=== PATIENT | female | born 1995 | race Caucasian/White ===

== ENCOUNTER 2017-02-13 22:13 | Emergency (ER) | payer OTHER ==
[2017-02-13 22:35] VITALS: RESP 16
--- NOTE | 2017-02-13 23:19 | EDPHY ---
H & P Stated Complaint: lower abd pain xfew weeks, bright red diarrhea Time Seen by Provider: 02/13/17 23:06 HPI/ROS: Chief Complaint: Diarrhea HPI: 21-year-old woman presenting with 2 weeks of intermittent diarrhea. Patient states she is having an episode of maybe twice a week. Is associated with some abdominal cramping. This evening she had an episode of diarrhea with blood in it. Shortly thereafter she had another bowel movement where she passed ronald blood. Has had some cramping today. Currently is not have any pain. Some nausea, no vomiting. Denies any rectal pain. No history of hemorrhoids. She does have a history of irritable bowel syndrome which she has been taking medications for the past but is not currently on any medications for this. Denies any fevers or chills. Has had some weight loss and has a history of anorexia but states she has been eating some. ROS: 10 point Review of Systems is negative except as noted in the HPI. PMH: IBS, exercise-induced asthma, pericardial effusion, depression, borderline personality, anorexia nervosa Social History: No smoking, no alcohol, no recreational drug use Family History: non-contributory Physical Exam: Gen: Awake, Alert, No Distress HEENT: Nose: no rhinorrhea Eyes: PERRLA, EOMI Mouth: Moist mucosa Neck: Supple, no JVD Chest: nontender, lungs clear to auscultation Heart: S1, S2 normal, no murmur Abd: Soft, non-tender, no guarding Back: no CVA tenderness, no midline tenderness Ext: no edema, non-tender Skin: no rash Neuro: CN II-XII intact, Sensation grossly intact, Strength 5/5 in bilateral upper and lower extremities - Personal History LMP (Females 10-55): Over 28 Days Ago Current Tetanus/Diphtheria Vaccine: Yes Current Tetanus Diphtheria and Acellular Pertussis (TDAP): Yes Tetanus Vaccine Date: 2010 - Medical/Surgical History Hx Asthma: Yes Hx Chronic Respiratory Disease: No Hx Diabetes: No Hx Cardiac Disease: No Hx Renal Disease: No Hx Cirrhosis: No Hx Alcoholism: No Hx HIV/AIDS: No Hx Splenectomy or Spleen Trauma: No Other PMH: [place]; IBS; schizoeffective, depression, anxiety, in transition from female to male with hormone therapy 06/28/16 - Social History Smoking Status: Former smoker Constitutional: Initial Vital Signs Temperature (C) 36.6 C 02/13/17 22:31 Heart Rate 93 02/13/17 22:31 Respiratory Rate 16 02/13/17 22:31 Blood Pressure 118/66 02/13/17 22:31 O2 Sat (%) 98 02/13/17 22:31 O2 Delivery Mode Room Air Allergies/Adverse Reactions: No Known Allergies Allergy (Verified 06/28/16 03:09) Home Medications: Medication Instructions Recorded Adderall 06/28/16 Klonopin 06/28/16 Lamictal 06/28/16 TESTOSTERONE 06/28/16 Medical Decision Making ED Course/Re-evaluation: Patient blood work is normal. Normal H&H. Normal electrolytes. Has not had any further diarrhea here. Symptoms are consistent with irritable bowel. She has only had 1 episode of blood this evening. No active bleeding at this time. She has been cautioned to return should her symptoms worsen. Her vital signs are normal. She will be discharged with referral for outpatient follow-up with gastroenterology and primary care physician. Return for worsening. - Data Points Laboratory Results: Laboratory Results 02/13/17 23:06 02/13/17 23:06 02/13/17 02/13/17 02/13/17 23:06 23:06 23:06 WBC 6.65 10^3/uL 10^3/uL (3.80-9.50) RBC 4.59 10^6/uL 10^6/uL (4.18-5.33) Hgb 14.8 g/dL g/dL (12.6-16.3) Hct 43.4 % % (38.0-47.0) MCV 94.6 fL fL (81.5-99.8) MCH 32.2 pg pg (27.9-34.1) MCHC 34.1 g/dL g/dL (32.4-36.7) RDW 12.8 % % (11.5-15.2) Plt Count 144 10^3/uL L 10^3/uL (150-400) MPV 10.7 fL fL (8.7-11.7) Neut % (Auto) 63.9 % % (39.3-74.2) Lymph % (Auto) 23.5 % % (15.0-45.0) [place] % (Auto) 11.4 % % (4.5-13.0) Eos % (Auto) 0.3 % L % (0.6-7.6) Baso % (Auto) 0.6 % % (0.3-1.7) Nucleat RBC Rel Count 0.0 % % (0.0-0.2) Absolute Neuts (auto) 4.25 10^3/uL 10^3/uL (1.70-6.50) Absolute Lymphs (auto) 1.56 10^3/uL 10^3/uL (1.00-3.00) Absolute Monos (auto) 0.76 10^3/uL 10^3/uL (0.30-0.80) Absolute Eos (auto) 0.02 10^3/uL L 10^3/uL (0.03-0.40) Absolute Basos (auto) 0.04 10^3/uL 10^3/uL (0.02-0.10) Absolute Nucleated RBC 0.00 10^3/uL 10^3/uL (0-0.01) Immature Gran % 0.3 % % (0.0-1.1) Immature Gran # 0.02 10^3/uL 10^3/uL (0.00-0.10) Sodium 138 mEq/L mEq/L (134-144) Potassium 3.6 mEq/L mEq/L (3.5-5.2) Chloride 97 mEq/L mEq/L (97-110) Carbon Dioxide 28 mEq/l mEq/l (22-31) Anion Gap 13 mEq/L mEq/L (8-16) BUN 6 mg/dL L mg/dL (7-23) Creatinine 0.8 mg/dL mg/dL (0.6-1.0) Estimated GFR > 60 Glucose 71 mg/dL mg/dL (70-100) Calcium 9.8 mg/dL mg/dL (8.5-10.4) Beta HCG, Qual NEGATIVE Departure - Departure Disposition: Home, Routine, Self-Care Clinical Impression: Lower GI bleeding Condition: Good Instructions: Rectal Bleeding (ED) Additional Instructions: Follow up with weight engineer in 3-4 days for re-evaluation. Follow up with primary care physician in 3-4 days for re-evaluation. Return to the emergency depart for increasing episodes of blood per rectum, lightheadedness or fainting, worsening abdominal pain, fevers, chills, or any other concerns. Referrals: Estee Gomez PA [Primary Care Provider] - As per Instructions Man Graham MD [Medical Doctor] - As per Instructions
[2017-02-13 23:22] LABS: % IMMATURE GRANULYOCYTES 0.3 % (0.0-1.1); ABSOLUTE IMMATURE GRANULOCYTES 0.02 10^3/uL (0.00-0.10); ADD DIFF? NO; ADD MORPH? NO; ADD SCAN? NO; ATYPICAL LYMPHOCYTE FLAG 0 (0-99); FRAGMENT RBC FLAG 0 (0-99); HEMATOCRIT 43.4 % (38.0-47.0); HEMOGLOBIN 14.8 g/dL (12.6-16.3); LEFT SHIFT FLG 0 (0-99); LIPEMIA HEMOLYSIS FLAG 90 (0-99); MEAN CELL HEMOGLOBIN 32.2 pg (27.9-34.1); MEAN CELL HEMOGLOBIN CONCENTR. 34.1 g/dL (32.4-36.7); MEAN CELL VOLUME 94.6 fL (81.5-99.8); MEAN PLATELET VOLUME 10.7 fL (8.7-11.7); PLATELET CLUMPS FLAG 0 (0-99); PLATELET COUNT 144 10^3/uL (150-400); RED BLOOD CELL COUNT 4.59 10^6/uL (4.18-5.33); RED CELL DISTRIBUTION WIDTH 12.8 % (11.5-15.2)
[2017-02-13 23:29] LABS: ANION GAP 13 mEq/L (8-16); CALCIUM 9.8 mg/dL (8.5-10.4); CARBON DIOXIDE 28 mEq/l (22-31); CHLORIDE 97 mEq/L (97-110); CREATININE 0.8 mg/dL (0.6-1.0); GLOMERULAR FILTRATION RATE > 60; GLUCOSE 71 mg/dL (70-100); POTASSIUM 3.6 mEq/L (3.5-5.2); SODIUM 138 mEq/L (134-144)
[2017-02-14 00:04] VITALS: BP 116/67; PULSE 76; TEMP 98.1; O2SAT 97
== END 2017-02-14 00:13 | disposition home or self-care (01) ==
DX: K92.2 Gastrointestinal hemorrhage, unspecified (principal); Z87.891 Personal history of nicotine dependence

== ENCOUNTER 2017-03-14 08:52 | Inpatient (IN) | payer OTHER ==
[2017-03-14] MEDS ORDERED: fentaNYL 100 MCG/2 ML INJ IVP ONE (09:24)
[2017-03-14] MEDS ORDERED: ONDANSETRON 4 MG/2 ML VIAL IVP ONE (09:24)
[2017-03-14] MEDS ORDERED: NS 1,000 ML IV ONE ×3 (09:24→14:57)
--- NOTE | 2017-03-14 09:24 | EDPHY ---
H & P Time Seen by Provider: 03/14/17 09:12 HPI/ROS: CHIEF COMPLAINT: Abdominal pain, vomiting HISTORY OF PRESENT ILLNESS: 21-year-old transgender male presents to the emergency department with abdominal pain and vomiting. Symptoms began 24 hours ago. She initially started with vomiting and has vomited "count less" times. No diarrhea. No bowel movement for 2 days. No fevers or chills. No back pain. No urinary symptoms. The patient does not have menstrual cycles because she is taking testosterone. She denies chest pain or difficulty breathing. Denies reported trauma. REVIEW OF SYSTEMS: Constitutional: No fever, no chills. Eyes: No double or blurry vision. ENT: No sore throat. Respiratory: No cough, no shortness of breath. Cardiac: No chest pain. Gastrointestinal: Abdominal pain as above. Vomiting. No diarrhea. Genitourinary: No dysuria. Musculoskeletal: No neck or back pain. Skin: No rashes. Neurological: No headache. Past Medical/Surgical History: Transgender Social History: Single Smoking Status: Former smoker Physical Exam: General Appearance: Alert, no distress. Afebrile. No apparent distress. Eyes: Pupils equal and round. Extraocular motions are all intact. ENT: Mouth: Mucous membranes dry. Respiratory: No wheezing, rhonchi, or rales, lungs are clear to auscultation. Cardiovascular: Regular rate and rhythm. Gastrointestinal: Abdomen is soft. Tenderness with palpation in the right lower quadrant. No rebound, guarding or masses noted. No CVA tenderness bilaterally. Neurological: Alert and oriented x 3, cranial nerves II through XII grossly intact Skin: Warm and dry, no rashes. Musculoskeletal: Nontender to palpate along the cervical, thoracic or lumbar spine. Neck is supple. Extremities: Full range of motion and no peripheral edema. Psychiatric: Patient is oriented X 3, there is no agitation. Constitutional: Initial Vital Signs Temperature (C) 36.9 C 03/14/17 08:58 Heart Rate 116 H 03/14/17 08:58 Respiratory Rate 16 03/14/17 08:58 Blood Pressure 137/108 H 03/14/17 08:58 O2 Sat (%) 98 03/14/17 08:58 O2 Delivery Mode Room Air Allergies/Adverse Reactions: No Known Allergies Allergy (Verified 03/14/17 09:01) Home Medications: Medication Instructions Recorded Amphet Asp and D/Amphet [Adderall 10 mg PO DAILY PRN 06/28/16 10 MG (*)] Testosterone [Androderm] 1 each TD DAILY 06/28/16 clonazePAM [klonoPIN (*)] 1 mg PO DAILY PRN 06/28/16 lamoTRIgine [LamICTAL 100 MG (*)] 200 mg PO HS 06/28/16 Gabapentin [Neurontin 300 MG (*)] 900 mg PO HS 03/14/17 Ondansetron Odt [Zofran Odt 4 mg 4 mg PO DAILY PRN 03/14/17 (*)] Medical Decision Making - Diagnostics Imaging Results: Imaging Impressions Abdomen Ultrasound 03/14/17 10:14 Impression: 1. Nondiagnostic assessment of the appendix. 2. Small amount of free fluid, of indeterminate etiology. 3. Query mild right lower quadrant mesenteric adenitis. If there is further clinical concern regarding the patient's symptoms, contrast- enhanced CT imaging is suggested. Findings were discussed with GILL MEADE PA-C at 11:32 AM, on 03/14/2017. Abdomen CT 03/14/17 12:02 Impression: Acute pancreatitis. Findings and recommendations discussed with Gill Meade PA-C, at 1334 hour , 03/14/2017. Final report concurs with initial preliminary interpretation. Imaging: Discussed imaging studies w/ director call center sales Radiologist ED Course/Re-evaluation: 21-year-old transgender male presents to the emergency department with multiple episodes of nausea vomiting abdominal pain. Laboratory studies reveal elevated white blood cell count of almost 15,000. Initial chemistries reveal creatinine of 1.4 with a CO2 of 18. He appears acutely dehydrated. He received 2 L of IV normal saline. Limited abdominal ultrasound did not reveal the appendix. Did have some nonspecific free fluid near the gallbladder. The patient continued to have ongoing pain. I was concerned about possible acute appendicitis. The case was discussed with Dr. Jorge Donohue, secondary supervising physician, who did not directly evaluate the patient but agrees with treatment and plan. He agrees with CT imaging to look for acute appendicitis. The patient does have an elevated creatinine 1.4, however he did received 2 L of IV normal saline. I did discuss this with the patient who verbalized understanding and agreed. Urine HCG in the emergency department was negative. CT imaging of the abdomen and pelvis was difficult to see the appendix although no signs of acute appendicitis. CT was positive for acute pancreatitis without necrosis. Ascites also noted. Fatty liver. LFTs are elevated including conjugated bili, AST ALT and alkaline phosphatase. Lipase is over 6000. Patient will be admitted with acute pancreatitis. He was treated with 3 L of IV normal saline. Also received IV fentanyl initially and then IV morphine for pain and Zofran for nausea. Differential Diagnosis: Including but not limited to dehydration, acute appendicitis, pancreatitis, hepatitis, urinary tract infection, pyelonephritis - Data Points Laboratory Results: Laboratory Results 03/14/17 09:25 03/14/17 09:25 03/14/17 03/14/17 03/14/17 09:25 09:25 09:25 WBC RBC Hgb Hct MCV MCH MCHC RDW Plt Count MPV Neut % (Auto) Lymph % (Auto) [place] % (Auto) Eos % (Auto) Baso % (Auto) Nucleat RBC Rel Count Absolute Neuts (auto) Absolute Lymphs (auto) Absolute Monos (auto) Absolute Eos (auto) Absolute Basos (auto) Absolute Nucleated RBC Immature Gran % Immature Gran # Sodium 135 mEq/L mEq/L (134-144) Potassium 4.9 mEq/L mEq/L (3.5-5.2) Chloride 92 mEq/L L mEq/L (97-110) Carbon Dioxide 18 mEq/l L mEq/l (22-31) Anion Gap 25 mEq/L H mEq/L (8-16) BUN 18 mg/dL mg/dL (7-23) Creatinine 1.4 mg/dL H mg/dL (0.7-1.3) Estimated GFR > 60 Glucose 152 mg/dL H mg/dL (70-100) Calcium 9.6 mg/dL mg/dL (8.5-10.4) Phosphorus Pending Total Bilirubin 1.1 mg/dL mg/dL (0.1-1.4) Conjugated Bilirubin 0.6 mg/dL H mg/dL (0.0-0.5) Unconjugated Bilirubin 0.5 mg/dL mg/dL (0.0-1.1) AST 244 IU/L H IU/L (17-59) ALT 95 IU/L H IU/L (21-72) Alkaline Phosphatase 150 IU/L H IU/L (38-126) Total Protein 7.8 g/dL g/dL (6.3-8.2) Albumin 5.1 g/dL H g/dL (3.5-5.0) Lipase 6049 IU/L H IU/L (23-300) 03/14/17 09:25 WBC 14.28 10^3/uL H 10^3/uL (3.80-9.50) RBC 4.90 10^6/uL 10^6/uL (4.40-6.38) Hgb 15.6 g/dL g/dL (13.7-17.5) Hct 46.3 % % (40.0-51.0) MCV 94.5 fL fL (81.5-99.8) MCH 31.8 pg pg (27.9-34.1) MCHC 33.7 g/dL g/dL (32.4-36.7) RDW 12.8 % % (11.5-15.2) Plt Count 149 10^3/uL L 10^3/uL (150-400) MPV 10.2 fL fL (8.7-11.7) Neut % (Auto) 85.6 % H % (39.3-74.2) Lymph % (Auto) 3.6 % L % (15.0-45.0) [place] % (Auto) 10.1 % % (4.5-13.0) Eos % (Auto) 0.0 % L % (0.6-7.6) Baso % (Auto) 0.3 % % (0.3-1.7) Nucleat RBC Rel Count 0.0 % % (0.0-0.2) Absolute Neuts (auto) 12.22 10^3/uL H 10^3/uL (1.70-6.50) Absolute Lymphs (auto) 0.52 10^3/uL L 10^3/uL (1.00-3.00) Absolute Monos (auto) 1.44 10^3/uL H 10^3/uL (0.30-0.80) Absolute Eos (auto) 0.00 10^3/uL L 10^3/uL (0.03-0.40) Absolute Basos (auto) 0.04 10^3/uL 10^3/uL (0.02-0.10) Absolute Nucleated RBC 0.00 10^3/uL 10^3/uL (0-0.01) Immature Gran % 0.4 % % (0.0-1.1) Immature Gran # 0.06 10^3/uL 10^3/uL (0.00-0.10) Sodium Potassium Chloride Carbon Dioxide Anion Gap BUN Creatinine Estimated GFR Glucose Calcium Phosphorus Total Bilirubin Conjugated Bilirubin Unconjugated Bilirubin AST ALT Alkaline Phosphatase Total Protein Albumin Lipase Medications Given: Morphine Sulfate (Morphine) 1 - 2 mg IVP Q1HR PRN PRN Reason: Pain, Severe Unable to Take PO Stop: 03/24/17 14:56 Last Admin: 03/14/17 15:12 Dose: 2 mg Ondansetron HCl (Zofran) 4 mg IVP Q4HRS PRN PRN Reason: Nausea/Vomiting, Can't Take PO Stop: 09/10/17 14:56 Last Admin: 03/14/17 15:12 Dose: 4 mg Discontinued Medications Fentanyl (Sublimaze) 50 mcg IVP EDNOW ONE Stop: 03/14/17 09:25 Last Admin: 03/14/17 09:46 Dose: 50 mcg Sodium Chloride (Ns) 1,000 mls @ 0 mls/hr IV EDNOW ONE; Wide Open PRN Reason: Protocol Stop: 03/14/17 09:25 Last Admin: 03/14/17 09:47 Dose: 1,000 mls Sodium Chloride (Ns) 1,000 mls @ 0 mls/hr IV EDNOW ONE; Wide Open PRN Reason: Protocol Stop: 03/14/17 10:02 Last Admin: 03/14/17 10:25 Dose: 1,000 mls Sodium Chloride (Ns) 1,000 mls @ 3,000 mls/hr IV ONCE ONE Stop: 03/14/17 15:16 Last Admin: 03/14/17 15:12 Dose: 1,000 mls Ondansetron HCl (Zofran) 4 mg IVP EDNOW ONE Stop: 03/14/17 09:25 Last Admin: 03/14/17 09:46 Dose: 4 mg Departure - Departure Disposition: [facility] Clinical Impression: Dehydration Pancreatitis Qualifiers: Chronicity: acute Pancreatitis type: alcohol induced Acute pancreatitis complication: unspecified Qualified Code(s): K85.20 - Alcohol induced acute pancreatitis without necrosis or infection Vomiting Qualifiers: Vomiting type: unspecified Vomiting Intractability: non-intractable Nausea presence: with nausea Qualified Code(s): R11.2 - Nausea with vomiting, unspecified Condition: Good
[2017-03-14 09:39] LABS: % IMMATURE GRANULYOCYTES 0.4 % (0.0-1.1); ABSOLUTE IMMATURE GRANULOCYTES 0.06 10^3/uL (0.00-0.10); ADD DIFF? NO; ADD MORPH? NO; ADD SCAN? NO; ATYPICAL LYMPHOCYTE FLAG 0 (0-99); FRAGMENT RBC FLAG 0 (0-99); HEMATOCRIT 46.3 % (40.0-51.0); HEMOGLOBIN 15.6 g/dL (13.7-17.5); LEFT SHIFT FLG 10 (0-99); LIPEMIA HEMOLYSIS FLAG 80 (0-99); MEAN CELL HEMOGLOBIN 31.8 pg (27.9-34.1); MEAN CELL HEMOGLOBIN CONCENTR. 33.7 g/dL (32.4-36.7); MEAN CELL VOLUME 94.5 fL (81.5-99.8); MEAN PLATELET VOLUME 10.2 fL (8.7-11.7); PLATELET CLUMPS FLAG 0 (0-99); PLATELET COUNT 149 10^3/uL (150-400); RED CELL DISTRIBUTION WIDTH 12.8 % (11.5-15.2)
[2017-03-14 09:48] LABS: ANION GAP 25 mEq/L (8-16); CALCIUM 9.6 mg/dL (8.5-10.4); CARBON DIOXIDE 18 mEq/l (22-31); CHLORIDE 92 mEq/L (97-110); CREATININE 1.4 mg/dL (0.7-1.3); GLOMERULAR FILTRATION RATE > 60; GLUCOSE 152 mg/dL (70-100); POTASSIUM 4.9 mEq/L (3.5-5.2); SODIUM 135 mEq/L (134-144)
[2017-03-14 12:12] LABS: ALBUMIN 5.1 g/dL (3.5-5.0); BILIRUBIN,TOTAL 1.1 mg/dL (0.1-1.4); BILIRUBIN-CONJUGATED 0.6 mg/dL (0.0-0.5); BILIRUBIN-UNCONJUGATED 0.5 mg/dL (0.0-1.1); TOTAL PROTEIN 7.8 g/dL (6.3-8.2)
[2017-03-14] MEDS ORDERED: IOPAMIDOL (ISOVUE-300) 100 ML BTL ONE (12:16)
[2017-03-14] MEDS ORDERED: PROMETHAZINE HCL 25 MG/ML INJ IVP PRN (14:57)
[2017-03-14] MEDS ORDERED: ACETAMINOPHEN 325 MG TAB PO PRN (14:57)
[2017-03-14] MEDS ORDERED: ONDANSETRON 4 MG/2 ML VIAL IVP PRN (14:57)
[2017-03-14] MEDS ORDERED: THIAMINE HCL 500 MG in NS 100 ML IV ONE (15:00)
[2017-03-14] MEDS ORDERED: chlordiazePOXIDE 25 MG CAP PO ONE (15:00)
[2017-03-14] MEDS ORDERED: LORazepam 2 MG/ML INJ IVP PRN (15:00)
--- NOTE | 2017-03-14 16:18 | GHP ---
[f rep st] HISTORY AND PHYSICAL DATE OF ADMISSION: 03/14/2017 CHIEF COMPLAINT: Abdominal pain, nausea, vomiting. HISTORY OF PRESENT ILLNESS: A 21-year-old transgender, female to male, who presents with abdominal pain, nausea and vomiting, for the 24 hours preceding her presentation to the emergency department. The patient reports very little p.o. intake the day prior to presentation with severe lower quadrant abdominal discomfort and vomiting that she says occurred upwards of 70 time over the 24 hours prior to her presentation. The patient describes vomiting bilious material only prior to arriving to the emergency department. Denies any hematemesis or coffee-grounds emesis. Denies any diarrhea or hematochezia. Denies any headache, vision changes, shortness of breath, chest pain. Denies myalgias, arthralgias, or rashes. The patient denies any previous episodes of pancreatitis or alcohol withdrawal. The patient works at a [employer] where she reports drinking high quantities of alcohol. She experiences some withdrawal symptoms of tremor and hallucinations on the days she is not consuming that level of alcohol. PAST MEDICAL HISTORY: 1. IBS. 2. Borderline personality disorder. 3. Schizoaffective disorder. 4. Depression. 5. Anorexia. 6. Alcohol abuse. 7. 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 SOCIAL HISTORY: High quantity alcohol consumption, greater than 8 beverages a day when working. FAMILY HISTORY: Unknown. The patient is adopted, however, was told at some point in her paperwork that alcoholism was in her family. REVIEW OF SYSTEMS: A 10-point review of systems is negative with the exception of that reported in the HPI. PHYSICAL EXAMINATION: VITAL SIGNS: Blood pressure is 137/108, heart rate 116, respiratory rate 16, 98% on room air, 36.9. GENERAL: This is a young female, lying flat in bed. HEENT: The patient appeared with full cheeks, almost consistent with steroid exposure. Pupils were equal and round. CARDIAC: Patient is regular rate and rhythm. No murmurs, gallops, or rubs. PULMONARY: Good respiratory effort. Clear to auscultation bilaterally. GASTROINTESTINAL: Diminished bowel sounds. The patient is very tender to palpation in all 4 quadrants, right upper and bilateral lower greater than upper left. There is voluntary guarding. No rebound. MUSCULOSKELETAL: Negative for any lower extremity edema. SKIN: Negative for any rashes. NEUROLOGIC: She is alert and oriented x3. PSYCHIATRIC: She was cooperative on interview and examination. DATA: White count is 14.2, hematocrit 46.3, platelet count of 149. Sodium 135 , creatinine 1.4. Anion gap of 25. Bicarb of 18. Blood glucose 152. AST of 244, ALT 95. Alkaline phosphatase 150. Total bilirubin 1.1. Lipase of 6049. CT of the abdomen, which I personally reviewed and interpreted, shows pancreatitis. No abnormalities of the gallbladder. Radiology comments on fatty infiltration of the liver. ASSESSMENT AND PLAN: This is a 21-year-old female, with history of alcohol abuse, presenting with abdominal pain. 1. Acute pancreatitis, presumed secondary to alcohol. The patient is presenting with high-volume alcohol consumption and acute onset abdominal pain. Imaging is consistent with pancreatitis. We will admit for intravenous fluids , intravenous pain medications, intravenous antiemetics. We will keep the patient nothing by mouth until her abdominal pain improves. We discussed at length the importance of alcohol cessation going forward and the risk of recurrent pancreatitis with reintroduction of alcohol to her pancreas. Suspicion for confounding factors such as gallstones or gallbladder disease is low as imaging on presentation is normal. 2. Systemic inflammatory response syndrome. Patient is presenting with leukocytosis and tachycardia, presumed secondary to pancreatitis. We will fluid resuscitate, treat her pain, and follow her vital sign and laboratory abnormalities. 3. Anion gap metabolic acidosis, presumed secondary to starvation ketosis with alcohol consumption and dehydration. Sent urinalysis to look for ketones. Will aggressively fluid resuscitate and follow her BMP in the morning. 4. Acute kidney injury secondary to hypovolemia. Per the patient's report, she has had very little effective oral intake in greater than 24 hours. Again, we will fluid resuscitate and recheck her labs in the morning. 5. Schizoaffective mood disorder. Patient takes evening Lamictal which will continue at this time. Brief literature review makes this medication less likely a contributor to her acute pancreatitis. 6. Active anorexia nervosa. The patient does report receiving active treatment for her eating disorder. She is a food restrictor. Most currently denies the use of recent diuretics or stool softeners. We are making the patient nothing by mouth in the setting of acute pancreatitis. Hope we can resume normal food intake post acute treatment of her intra-abdominal abnormality. 7. Alcohol abuse. We will treat the patient with intravenous vitamins. The patient is showing early signs of alcohol withdrawal. 8. Acute alcohol withdrawal. The patient presented tachycardic, tremulous with tongue fasciculations. She is reporting 8 or more alcoholic beverages a day with days in between of no consumption, however, I am questioning the truth in that report. We will initiate the [facility] Withdrawal Assessment protocol and scheduled Librium. Follow patient's symptoms and treat with intravenous Ativan as needed. 9. 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 The patient is taking testosterone supplementation transdermally which we will continue. I have requested that we send a test even in the setting of her transgender state as we will be using high-dose narcotics and benzodiazepines for her acute illness. 10. Prophylaxis with Lovenox. 11. Diet: Nothing by mouth. 12. Disposition: I expect greater than 2 midnights as the patient is presenting with acute pancreatitis, high risk for developing serious alcohol withdrawal. She will require close monitoring, intravenous fluid resuscitation , and intravenous pain medications. I have discussed the case with the emergency room physician. Patient will be triaged to the medical-surgical floor for care. /[id number]/MODL MTDD
[2017-03-14] MEDS: NS 1,000 ML IV SCH ×2 (16:33→23:42)
[2017-03-14] MEDS: lamoTRIgine 100 MG TAB PO SCH (21:49)
[2017-03-14] MEDS: chlordiazePOXIDE 25 MG CAP PO SCH (21:49)
[2017-03-15 05:48] LABS: % IMMATURE GRANULYOCYTES 0.4 % (0.0-1.1); ABSOLUTE IMMATURE GRANULOCYTES 0.03 10^3/uL (0.00-0.10); ADD DIFF? NO; ADD MORPH? NO; ADD SCAN? NO; ATYPICAL LYMPHOCYTE FLAG 0 (0-99); FRAGMENT RBC FLAG 0 (0-99); HEMATOCRIT 38.3 % (40.0-51.0); HEMOGLOBIN 12.9 g/dL (13.7-17.5); LEFT SHIFT FLG 20 (0-99); LIPEMIA HEMOLYSIS FLAG 80 (0-99); MEAN CELL HEMOGLOBIN 32.2 pg (27.9-34.1); MEAN CELL HEMOGLOBIN CONCENTR. 33.7 g/dL (32.4-36.7); MEAN CELL VOLUME 95.5 fL (81.5-99.8); MEAN PLATELET VOLUME 10.1 fL (8.7-11.7); PLATELET CLUMPS FLAG 0 (0-99); PLATELET COUNT 79 10^3/uL (150-400); RED BLOOD CELL COUNT 4.01 10^6/uL (4.40-6.38)
[2017-03-15 05:57] LABS: ANION GAP 9 mEq/L (8-16); CALCIUM 7.4 mg/dL (8.5-10.4); CARBON DIOXIDE 24 mEq/l (22-31); CHLORIDE 101 mEq/L (97-110); CREATININE 0.7 mg/dL (0.7-1.3); GLOMERULAR FILTRATION RATE > 60; GLUCOSE 63 mg/dL (70-100); MAGNESIUM 1.3 mg/dL (1.6-2.3); POTASSIUM 4.4 mEq/L (3.5-5.2); SODIUM 134 mEq/L (134-144)
[2017-03-15] MEDS ORDERED: D50W 25 GM/50 ML SYR IVP PRN (06:49)
[2017-03-15] MEDS: NS 1,000 ML IV SCH ×3 (07:41→21:00)
[2017-03-15] MEDS: chlordiazePOXIDE 25 MG CAP PO SCH ×3 (09:23→20:55)
[2017-03-15] MEDS: THIAMINE HCL 100 MG TAB PO SCH (09:23)
[2017-03-15] MEDS: ENOXAPARIN 40 MG/0.4 ML SYR SC SCH (09:24)
[2017-03-15] MEDS: TESTOSTERONE TD SCH (09:27)
--- NOTE | 2017-03-15 12:59 | HOSPPROG ---
Hospitalist Progress Note Assessment/Plan: DIAGNOSES: -acute alcohol-induced pancreatitis without necrosis -systemic immune response syndrome partly due to the above and perhaps partly due to withdrawal -mild early acute alcohol withdrawal syndrome -acute kidney injury, suspect due to hemodynamic challenge from poor intake and vomiting -metabolic acidosis -mild alcoholic hepatitis -alcohol abuse syndrome -transgender female to male, goes by name Cesar PLANS: -continue IV hydration -will allow a trial of sips of clear liquids at this time to see if she tolerates that -anticipate possible discharge to home in 1-2 days depending on her progress -did spend more time with alcohol counseling at this time. She says she has an alcohol treatment program and plans to continue that and she has very good family support locally. She views this episode is wake-up call and is very much wanting to get away from all alcohol SUBJECTIVE: Still with upper abdominal pain mild radiation to back, no nausea or vomiting No fever symptoms Is beginning is slightly thirsty and hungry No other new symptoms OBJECTIVE Vitals reviewed: Stable without fever Exam: alert oriented skin warm dry color ok resps not labored lungs clear BSs heart regular abd soft nondistended, still with tenderness and some guarding and upper abdomen , bowel sounds present No bruising or livedo reticularis limbs warm, no edema iv site ok Objective: Vital Signs Temp Pulse Resp BP Pulse Ox 36.8 C 83 18 116/76 97 03/15/17 11:51 03/15/17 11:51 03/15/17 11:51 03/15/17 11:51 03/15/17 11:51 Laboratory Results 03/15/17 05:25 03/15/17 05:25 03/14/17 03/15/17 03/16/17 06:59 06:59 06:59 Intake Total 3800 Balance 3800 ICD10 Worksheet Patient Problems: Problems Problem Status Onset Dehydration Acute Pancreatitis Acute Vomiting Acute
--- NOTE | 2017-03-15 17:04 | ASMTCMCOM ---
CM Note CM Note Notes: Chart reviewed and CM spoke w/ MONIQUE Garcia. Pt was admitted for pancreatitis. Pt is heavily engaged in ETOH. Pt's liver emymes are elevated. Pt is on IV fluids. Pt lives alone and drinks 7-8 drinks a day. CM met w/ pt for dispo planning. Pt reports that she receives services through [facility]. Pt reports that she has a psychiatrist and a therapist through that agency. CM provided big book reading for pt. Pt will most likely discharge independent. CM available for changes. Date Signed: 03/15/2017 05:03 PM Electronically Signed By:NANI Russo
[2017-03-15] MEDS: lamoTRIgine 100 MG TAB PO SCH (20:55)
[2017-03-16 03:28] VITALS: RESP 16
[2017-03-16] MEDS: NS 1,000 ML IV SCH ×3 (03:34→17:07)
[2017-03-16 05:42] LABS: % IMMATURE GRANULYOCYTES 0.6 % (0.0-1.1); ABSOLUTE IMMATURE GRANULOCYTES 0.04 10^3/uL (0.00-0.10); ADD DIFF? NO; ADD MORPH? NO; ADD SCAN? NO; ATYPICAL LYMPHOCYTE FLAG 0 (0-99); FRAGMENT RBC FLAG 0 (0-99); HEMATOCRIT 42.1 % (40.0-51.0); HEMOGLOBIN 13.5 g/dL (13.7-17.5); LEFT SHIFT FLG 20 (0-99); LIPEMIA HEMOLYSIS FLAG 80 (0-99); MEAN CELL HEMOGLOBIN 31.6 pg (27.9-34.1); MEAN CELL HEMOGLOBIN CONCENTR. 32.1 g/dL (32.4-36.7); MEAN CELL VOLUME 98.6 fL (81.5-99.8); MEAN PLATELET VOLUME 10.7 fL (8.7-11.7); PLATELET CLUMPS FLAG 10 (0-99); PLATELET COUNT 63 10^3/uL (150-400); RED BLOOD CELL COUNT 4.27 10^6/uL (4.40-6.38)
[2017-03-16 05:57] LABS: ALANINE AMINOTRANSFERASE 47 IU/L (21-72); ALKALINE PHOSPHATASE 112 IU/L (38-126); ANION GAP 11 mEq/L (8-16); ASPARTATE AMINOTRANSFERASE 99 IU/L (17-59); BILIRUBIN,TOTAL 1.3 mg/dL (0.1-1.4); BILIRUBIN-CONJUGATED 0.5 mg/dL (0.0-0.5); BILIRUBIN-UNCONJUGATED 0.8 mg/dL (0.0-1.1); CALCIUM 7.5 mg/dL (8.5-10.4); CARBON DIOXIDE 19 mEq/l (22-31); CHLORIDE 104 mEq/L (97-110); CREATININE 0.6 mg/dL (0.7-1.3); GLOMERULAR FILTRATION RATE > 60; GLUCOSE 70 mg/dL (70-100); MAGNESIUM 1.4 mg/dL (1.6-2.3); POTASSIUM 3.8 mEq/L (3.5-5.2); SODIUM 134 mEq/L (134-144); TOTAL PROTEIN 5.3 g/dL (6.3-8.2)
[2017-03-16] MEDS: TESTOSTERONE TD SCH (09:09)
[2017-03-16] MEDS: chlordiazePOXIDE 25 MG CAP PO SCH (09:13)
[2017-03-16] MEDS: THIAMINE HCL 100 MG TAB PO SCH (09:13)
[2017-03-16] MEDS: ENOXAPARIN 40 MG/0.4 ML SYR SC SCH (09:14)
[2017-03-16] MEDS ORDERED: LORazepam 1 MG TAB PO PRN (11:36)
[2017-03-16] MEDS: oxyCODONE IR 5 MG TAB PO PRN ×2 (15:43→21:07)
--- NOTE | 2017-03-16 17:44 | HOSPPROG ---
Hospitalist Progress Note Assessment/Plan: Assessment: 21-year-old male presents with acute alcohol-induced pancreatitis Plan: 1. Alcohol induced pancreatitis. Acute, clinically improving but unresolved as yet -tolerating clear liquids, advanced to low-fat and gauge response -continuing use of IV pain medications, cycle in orals -educated the patient regarding connection between alcoholic pancreatitis 2. Acute alcohol withdrawal. Ongoing, very mild tremulousness, patient has received scheduled Librium and needs to be weaned from this -discontinue scheduled Librium, treat only with as needed Ativan, gauge effect -discussed with social work, patient is being presented with alcohol cessation resources 3. Alcohol abuse. Chronic, resulting in thrombocytopenia, transaminitis, continue to monitor labs and will need outpatient monitoring Diet. Low-fat Prophylaxis. High risk patient, Lovenox 40 Code. Full Disposition. Anticipated discharge 03/17/2017, pending clinical response of above. Subjective: Patient reports ongoing abdominal pain, continues to have poor appetite, has only taking clear liquids this morning Objective: Vital Signs Temp Pulse Resp BP Pulse Ox 37.3 C 70 16 108/71 98 03/16/17 15:20 03/16/17 15:20 03/16/17 15:20 03/16/17 15:20 03/16/17 15:20 Laboratory Results 03/16/17 05:18 03/16/17 05:18 03/15/17 03/16/17 03/17/17 05:59 05:59 05:59 Intake Total 3800 4706 Balance 3800 4706 - Pending Discharge Pending Discharge Within 24 Hours: Yes Pending Discharge Date: 03/17/17 Pending Discharge Time: 11:00 - Physical Exam Constitutional: no apparent distress, uncomfortable, No not in pain (Mild pain) , No chronically ill appearing Cardiovascular: regular rate and rhythym, no murmur, rub, or gallop Respiratory: no respiratory distress, no rales or rhonchi, clear to auscultation Gastrointestinal: tenderness (Midepigastric area), No normoactive bowel sounds ( Hypoactive bowel sounds), No guarding, No distension Skin: no rashes or abrasions, no fluctuance, no induration Neurologic: AAOx3, sensation intact bilaterally, No asterixes (No tremulousness) , No facial droop Psychiatric: interacting appropriately, not anxious, not encephalopathic, thought process linear ICD10 Worksheet Patient Problems: Problems Problem Status Onset Pancreatitis Acute Dehydration Acute Vomiting Acute
[2017-03-16] MEDS: lamoTRIgine 100 MG TAB PO SCH (20:12)
[2017-03-17] MEDS: oxyCODONE IR 5 MG TAB PO PRN (06:14)
[2017-03-17] MEDS: NS 1,000 ML IV SCH (06:15)
[2017-03-17 06:39] LABS: % IMMATURE GRANULYOCYTES 0.9 % (0.0-1.1); ABSOLUTE IMMATURE GRANULOCYTES 0.07 10^3/uL (0.00-0.10); ADD DIFF? NO; ADD MORPH? NO; ADD SCAN? NO; ATYPICAL LYMPHOCYTE FLAG 0 (0-99); FRAGMENT RBC FLAG 0 (0-99); HEMATOCRIT 36.6 % (40.0-51.0); HEMOGLOBIN 12.1 g/dL (13.7-17.5); LEFT SHIFT FLG 20 (0-99); LIPEMIA HEMOLYSIS FLAG 80 (0-99); MEAN CELL HEMOGLOBIN CONCENTR. 33.1 g/dL (32.4-36.7); MEAN CELL VOLUME 96.8 fL (81.5-99.8); MEAN PLATELET VOLUME 10.6 fL (8.7-11.7); PLATELET CLUMPS FLAG 0 (0-99); PLATELET COUNT 66 10^3/uL (150-400); RED BLOOD CELL COUNT 3.78 10^6/uL (4.40-6.38); RED CELL DISTRIBUTION WIDTH 12.7 % (11.5-15.2)
[2017-03-17 07:18] LABS: ALANINE AMINOTRANSFERASE 51 IU/L (21-72); ALBUMIN 3.2 g/dL (3.5-5.0); ALKALINE PHOSPHATASE 96 IU/L (38-126); ANION GAP 14 mEq/L (8-16); ASPARTATE AMINOTRANSFERASE 55 IU/L (17-59); BILIRUBIN,TOTAL 1.2 mg/dL (0.1-1.4); BILIRUBIN-CONJUGATED 0.5 mg/dL (0.0-0.5); BILIRUBIN-UNCONJUGATED 0.7 mg/dL (0.0-1.1); CALCIUM 7.8 mg/dL (8.5-10.4); CARBON DIOXIDE 19 mEq/l (22-31); CHLORIDE 104 mEq/L (97-110); CREATININE 0.5 mg/dL (0.7-1.3); GLOMERULAR FILTRATION RATE > 60; GLUCOSE 78 mg/dL (70-100); MAGNESIUM 1.5 mg/dL (1.6-2.3); POTASSIUM 3.2 mEq/L (3.5-5.2); SODIUM 137 mEq/L (134-144); TOTAL PROTEIN 5.3 g/dL (6.3-8.2)
[2017-03-17] MEDS ORDERED: POTASSIUM CL 20 MEQ TAB PO ONE (07:39)
[2017-03-17] MEDS: THIAMINE HCL 100 MG TAB PO SCH (08:11)
[2017-03-17] MEDS ORDERED: MAGNESIUM SULF 2 GM/WATER 50 ML IV ONE (08:34)
[2017-03-17 11:30] VITALS: BP 116/86; PULSE 93; TEMP 99; O2SAT 98
[2017-03-17] MEDS: ENOXAPARIN 40 MG/0.4 ML SYR SC SCH (12:49)
[2017-03-17] MEDS: TESTOSTERONE TD SCH (12:50)
--- NOTE | 2017-03-17 14:27 | ASDISCHSUM ---
Discharge Information Plan Status:Home with No Needs Medically Cleared to Leave: Discharge Date:03/17/2017 01:33 PM CM D/C Disposition:Home, Routine, Self-Care ADT D/C Disposition:Home, Routine, Self-Care Projected Discharge Date:03/17/2017 12:00 AM Transportation at D/C:Self Discharge Delay Reason: Follow-Up Date:03/17/2017 12:00 AM Discharge Slot: Final Diagnosis: Placement Information Patient Contact Information Contact Name:DAVID Relationship:Father Address: Work Phone: City:[place] Alternate Phone: State/Zip Code:[place] Email: Financial Information Financial Class:HMO and PPO Plans Primary Plan Desc:[facility] PPO POS Primary Plan Number:[id number] Secondary Plan Desc: Secondary Plan Number: Assessment Information [facility] Progress Note CM Note CM Note Notes: Chart reviewed and CM spoke w/ MONIQUE Garcia. Pt was admitted for pancreatitis. Pt is heavily engaged in ETOH. Pt's liver emymes are elevated. Pt is on IV fluids. Pt lives alone and drinks 7-8 drinks a day. CM met w/ pt for dispo planning. Pt reports that she receives services through [facility]. Pt reports that she has a psychiatrist and a therapist through that agency. CM provided big book reading for pt. Pt will most likely discharge independent. CM available for changes. Date Signed: 03/15/2017 05:03 PM Electronically Signed By:NANI Russo Intervention Information
--- NOTE | 2017-03-17 18:16 | PDDCSUM ---
Discharge Summary Discharge Summary: DISCHARGE SUMMARY FOLLOW-UP ITEMS: Repeat outpatient liver panel and CBC DATE OF ADMISSION: 03/14/2017 DATE OF DISCHARGE: 03/17/2017 DISCHARGE DIAGNOSES: 1. Alcohol induced pancreatitis 2. Acute alcohol withdrawal 3. Alcohol abuse, chronic 4. Acute metabolic acidosis CONSULTATIONS: Dietary PROCEDURES / IMAGING: Abdominal CT demonstrating acute pancreatitis, no evidence of stones CHIEF COMPLAINT: Acute abdominal pain SUBJECTIVE: Patient is feeling well at time of discharge PHYSICAL EXAM ON DISCHARGE: Systolic blood pressure is 110, heart rate 90, afebrile overnight, satting well on room air, abdomen is soft minimally tender in the mid epigastric area, no rebound or guarding, no tremulousness, alert awake oriented x3 LABS ON DISCHARGE: AST 60, ALT 50, total bilirubin 1.2, platelets 20881, potassium 3.2, creatinine 0.5 HOSPITAL COURSE BY PROBLEM: 1. Acute alcohol-induced pancreatitis. Patient presented with acute abdominal pain, elevated lipase, acute pancreatitis on imaging, most likely secondary to alcohol consumption. The patient was made NPO, received IV fluids, received IV pain and antiemetic medications. The patient was transitioned to oral pain and nausea medications, provided with oral antiemetics at time of discharge. Recommend complete alcohol cessation as well as a low-fat diet, and dietary did see the patient. 2. Acute alcohol withdrawal. Evidence by tremulousness, tachycardia, received scheduled Librium was transitioned to as needed Ativan. Provided the patient with some as needed tabs of Ativan at discharge. 3. Chronic alcohol abuse. Patient has chronic alcohol abuse with elevated liver enzymes and thrombocytopenia. We recommend complete cessation of follow- up with primary care provider. 4. Acute metabolic acidosis. Secondary to hypovolemia in the setting of above, received IV fluids and normalized. DISCHARGE MEDICATIONS: Please see official discharge medication reconciliation sheet in chart , Zofran as needed, limited supply of Ativan, 3 tabs prescribed. DISCHARGE INSTRUCTIONS: Please follow up with primary care provider within a week and have repeat labs. TIME SPENT: Greater than 30 minutes were spent on direct patient care, as well as discharge planning and preparation.
== END 2017-03-17 13:33 | disposition home or self-care (01) | DRG 439 ==
LOC: OBSVTOIN 14:54 → F3E 15:52
PROVIDERS: ADMIT Hospitalist; ATTEND Hospitalist
DX: K85.20 Alcohol induced acute pancreatitis without necrosis or infection (principal); F10.239 Alcohol dependence with withdrawal, unspecified; F50.01 Anorexia nervosa, restricting type; K70.10 Alcoholic hepatitis without ascites; N17.9 Acute kidney failure, unspecified; E86.1 Hypovolemia; F64.8 Other gender identity disorders; E87.2 Acidosis; Z87.891 Personal history of nicotine dependence
CPT/HCPCS: 96374; J1650; J2405; J3010; J3411; Q9967

== ENCOUNTER 2017-07-18 19:44 | Emergency (ER) | payer OTHER ==
[2017-07-18] MEDS ORDERED: IBUPROFEN 600 MG TAB PO ONE (20:18)
[2017-07-18] MEDS ORDERED: CEPHALEXIN 500MG PREPACK#4 BTL TAKEHOME ONE (20:19)
--- NOTE | 2017-07-18 20:19 | EDPHY ---
H & P Stated Complaint: burned on bilat hands at work on grill with hot water. Time Seen by Provider: 07/18/17 20:04 HPI/ROS: CHIEF COMPLAINT: Hand barrientos HISTORY OF PRESENT ILLNESS: The patient is a 21 y/o transgender, female-to- male, complaining of barrientos and blistering on both hands after being scalded while working 3 days ago. She was cleaning a grill with hot water and scalded both hands, worse on her left. She developed blistering by the following day and a large blister over her left hand in the dorsal and ulnar region burst. She has been taking Advil for pain and applying Neosporin without improvement in her pain. She does not think the redness has spread up her arm since the initial burn and denies fever. No other injuries. She recently completed a course of penicillin for strep infection. For the last week she's had a mild productive cough, postnasal drip, nasal congestion and rhinorrhea, sinus pressure, and mild shortness of breath that she attributes to a sinus infection. No myalgias. No fever, chills, chest pain, palpitations, vomiting, diarrhea, urinary complaints, headache, lightheadedness. REVIEW OF SYSTEMS: Aside from elements discussed in the HPI, a comprehensive 10-point review of systems was reviewed and is negative. PAST MEDICAL HISTORY: Mental health SOCIAL HISTORY: Employed. Lives in [place]. Identifies as male. VITAL SIGNS: Reviewed by me. Noted to be tachycardic. Patient thinks this is related to anxiety, pain, and sinus infection. GENERAL: Well-developed, well-nourished, resting comfortably in no respiratory distress. HEENT: Atraumatic. Left maxillary tenderness. Eyes: No icterus, no injection. Mouth: moist mucous membranes. No erythema or lesions. Neck: supple with no adenopathy. LUNGS: Clear to auscultation bilaterally, no wheezes, rhonchi or rales. CARDIAC: Regular rate and rhythm, no rubs, murmurs or gallops. ABDOMEN: Soft, nontender, nondistended, bowel sounds normal. BACK: No CVA tenderness. EXTREMITIES: Right hand: 2nd degree partial thickness burn of third finger, 4cm area of 1st degree superficial burn over ulnar aspect. Left hand: Full thickness burn of lateral fifth finger and dorsum of 4th and 5th metacarpals, noncircumferential, large burst blister over dorsum, partial thickness burn extends across dorsum almost to thumb. Finger ROM limited by pain. Other extremities atraumatic with normal ROM. NEURO: Alert and oriented, grossly nonfocal. SKIN: Warm and dry, no rash. PSYCHIATRIC: Normal mentation, no agitation. Portions of this note were transcribed by a medical records receptionist. I personally performed a history, physical exam, medical decision making, and confirmed accuracy of information the transcribed note. - Personal History Tetanus Vaccine Date: 2010 - Medical/Surgical History Hx Asthma: Yes Hx Chronic Respiratory Disease: No Hx Diabetes: No Hx Cardiac Disease: No Hx Renal Disease: No Hx Cirrhosis: No Hx Alcoholism: Yes Hx HIV/AIDS: No Hx Splenectomy or Spleen Trauma: No Other PMH: [place]; IBS; schizoeffective, depression, anxiety, in transition from female to male with hormone therapy 06/28/16, pancreatitis, fatty liver, hx etoh issues - Social History Smoking Status: Former smoker Constitutional: Initial Vital Signs Temperature (C) 36.7 C 07/18/17 19:47 Heart Rate 120 H 07/18/17 19:47 Respiratory Rate 20 07/18/17 19:47 Blood Pressure 121/84 H 07/18/17 19:47 O2 Sat (%) 99 07/18/17 19:47 O2 Delivery Mode Room Air Allergies/Adverse Reactions: No Known Allergies Allergy (Verified 03/14/17 09:01) Home Medications: Medication Instructions Recorded Amphet Asp and D/Amphet [Adderall 10 mg PO DAILY PRN 06/28/16 10 MG (*)] Testosterone [Androderm 4 mg patch] 1 each TD DAILY 06/28/16 clonazePAM [klonoPIN (*)] 1 mg PO DAILY PRN 06/28/16 lamoTRIgine [LamICTAL 100 MG (*)] 200 mg PO HS 06/28/16 Gabapentin [Neurontin 300 MG (*)] 900 mg PO HS 03/14/17 Ondansetron Odt [Zofran Odt 4 mg 4 mg PO DAILY PRN #40 tab 03/17/17 (*)] Cephalexin [Keflex (RX)] 500 mg PO QID 6 Days cap 07/18/17 Hydrocodone/APAP 5/325 [[place] 1 - 2 tab PO Q6H PRN #10 tab 07/18/17 5/325 (*)] Seroquel 07/18/17 Medical Decision Making ED Course/Re-evaluation: 21 y/o male presents with partial thickness and full thickness barrientos on both hands secondary to scald from hot water. Barrientos are not circumferential. Patient will be placed on Keflex for sinusitis and burn infection prophylaxis with standard burn care instructions and follow up. Referred to wound care for follow up this week. Script for Douglas provided to use in addition to ibuprofen for pain. Heart rate noted to be 108 at discharge. Wounds were dressed. Differential Diagnosis: Differential diagnoses for the patient's symptom complex was considered including but not limited to superficial, partial-thickness, or full-thickness burn, cellulitis, circumferential barrientos, dehydration, sinusitis. - Data Points Medications Given: Discontinued Medications Cephalexin (Keflex 500 Mg Prepack#4) 1 btl TAKEHOME EDNOW ONE PRN Reason: Protocol Stop: 07/18/17 20:20 Last Admin: 07/18/17 20:39 Dose: 1 btl Ibuprofen (Motrin) 600 mg PO EDNOW ONE Stop: 07/18/17 20:19 Last Admin: 07/18/17 20:39 Dose: 600 mg Departure - Departure Disposition: Home, Routine, Self-Care Clinical Impression: Partial thickness burn of back of right hand Qualifiers: Encounter type: initial encounter Qualified Code(s): T23.261A - Burn of second degree of back of right hand, initial encounter Partial thickness burn of back of left hand Qualifiers: Encounter type: initial encounter Qualified Code(s): T23.262A - Burn of second degree of back of left hand, initial encounter Full thickness burn of finger of left hand Qualifiers: Encounter type: initial encounter Qualified Code(s): T23.322A - Burn of third degree of single left finger (nail) except thumb, initial encounter Sinusitis Qualifiers: Sinusitis location: maxillary Chronicity: acute Recurrence: not specified as recurrent Qualified Code(s): J01.00 - Acute maxillary sinusitis, unspecified Condition: Good Instructions: Cephalexin (By mouth), Sinusitis (ED), Third Degree Burn (ED), Second Degree Burn (ED), Acute Wounds (ED) Additional Instructions: 1. Take Keflex as prescribed. Be sure to complete the entire prescription. 2. Take 600mg ibuprofen every 6-8 hours for pain and inflammation over the next several days. 3. Use Douglas as prescribed when needed for severe pain. 4. Apply thin layer of Bacitracin to wounds multiple times per day. You may change the dressing as needed. 5. Follow up with Dr. Emanuel, wound care surgeon, this week. Call first thing tomorrow morning to schedule an appointment for burn assessment. Tell them you are an ER follow up patient. 6. Check in with your employer's HR department to ensure your are following their work comp recommendations. 7. Return to the ED for severe pain, fever, dramatic increase in redness or development of pus from wounds, or other worsening of condition. Referrals: Estee Gomez PA [Primary Care Provider] - As per Instructions Rachael Emanuel MD [Medical Doctor] - As per Instructions Stand Alone Forms: Work Limited Duty Prescriptions: Cephalexin [Keflex (RX)] 500 mg PO QID 6 Days cap Hydrocodone/APAP 5/325 [Douglas 5/325 (*)] 1 - 2 tab PO Q6H PRN #10 tab PRN Reason: Pain, Breakthrough Report Scribed for: Amisha Flores Report Scribed by: Zoey Diop Date of Report: 07/18/17 Time of Report: 20:06
[2017-07-18 21:21] VITALS: BP 135/92; PULSE 108; RESP 16; TEMP 97.9; O2SAT 96
== END 2017-07-18 21:24 | disposition home or self-care (01) ==
PROC: 2W2LX4Z Dressing of Right Lower Extremity using Bandage (ICD-10-PCS; principal; 2017-07-18)
PROC: 2W2MX4Z Dressing of Left Lower Extremity using Bandage (ICD-10-PCS; 2017-07-18)
DX: T23.261A Burn of second degree of back of right hand, initial encounter (principal); T23.262A Burn of second degree of back of left hand, initial encounter; T23.332A Burn of third degree of multiple left fingers (nail), not including thumb, initial encounter; J01.00 Acute maxillary sinusitis, unspecified; J45.909 Unspecified asthma, uncomplicated; T31.0 Burns involving less than 10% of body surface; Z87.891 Personal history of nicotine dependence; X11.8XXA Contact with other hot tap-water, initial encounter; Y92.69 Other specified industrial and construction area as the place of occurrence of the external cause; Y99.0 Civilian activity done for income or pay; Y93.89 Activity, other specified

== ENCOUNTER 2017-09-29 02:00 | Emergency (ER) | payer OTHER ==
--- NOTE | 2017-09-29 02:42 | CPEKG ---
Heart Rate: 73 RR Interval: 822 P-R Interval: 152 QRSD Interval: 78 QT Interval: 408 QTC Interval: 450 P [place]: 53 QRS [place]: 71 T Wave [place]: 47 EKG Severity - NORMAL ECG - EKG Impression: SINUS RHYTHM Electronically Signed By: Breanna Hoffmann 29-Sep-2017 07:05:28
--- NOTE | 2017-09-29 03:00 | EDPHY ---
H & P Stated Complaint: "?arrythmia" Time Seen by Provider: 09/29/17 02:07 HPI/ROS: HPI The patient presents with epigastric abdominal pain and subsequently chest pain. He was at work today at about 4:00 p.m. When he felt acute onset of chest pain in his anterior chest which was sharp in nature. There were several episodes of this. Now he has epigastric abdominal pain which travels to the back which is mild and continuous. He did have 1 episode of vomiting. He is concerned that he may have a A pericardial effusion which she had previously in the setting of anorexia. He also has a history of alcohol use and alcoholic pancreatitis though says this pain feels different than that. Last alcoholic drink was 5 hr ago. There is no coughing or fever.. REVIEW OF SYSTEMS Constitutional: No fever, no chills. Eyes: No discharge. ENT: No sore throat. Cardiovascular: Positive for chest pain, no palpitations. Respiratory: No cough, no shortness of breath. Gastrointestinal: No abdominal pain, no vomiting. Genitourinary: No hematuria. Musculoskeletal: No back pain. Skin: No rashes. Neurological: No headache. PMHx: Female to male transgender patient on testosterone, history of alcoholic pancreatitis requiring hospitalization, reported history of pericardial effusion Soc Hx: Daily alcohol use, tobacco use PHYSICAL General Appearance: Alert, no distress Eyes: Pupils equal and round no pallor or injection ENT, Mouth: Mucous membranes moist Respiratory: There are no retractions, lungs are clear to auscultation Cardiovascular: Regular rate and rhythm Chest wall: There is no chest wall tenderness Gastrointestinal: Abdomen is soft and non-tender, no masses, bowel sounds normal Neurological: A&O, moves all extremities Skin: Warm and dry, no rashes Musculoskeletal: Neck is supple non tender Extremities: symmetrical, full range of motion Psychiatric: Patient is oriented X 3, there is no agitation Source: Patient Exam Limitations: No limitations - Personal History LMP (Females 10-55): Unknown Current Tetanus/Diphtheria Vaccine: Yes Current Tetanus Diphtheria and Acellular Pertussis (TDAP): Yes Tetanus Vaccine Date: 2010 - Medical/Surgical History Hx Asthma: Yes Hx Chronic Respiratory Disease: No Hx Diabetes: No Hx Cardiac Disease: No Hx Renal Disease: No Hx Cirrhosis: No Hx Alcoholism: Yes Hx HIV/AIDS: No Hx Splenectomy or Spleen Trauma: No Other PMH: [place]; IBS; schizoeffective, depression, anxiety, in transition from female to male with hormone therapy 06/28/16, pancreatitis, fatty liver, hx etoh issues - Social History Smoking Status: Former smoker Constitutional: Initial Vital Signs Temperature (C) 36.9 C 09/29/17 02:02 Heart Rate 105 H 09/29/17 02:02 Respiratory Rate 16 09/29/17 02:02 Blood Pressure 138/91 H 09/29/17 02:02 O2 Sat (%) 95 09/29/17 02:02 O2 Delivery Mode Room Air Allergies/Adverse Reactions: amoxicillin [From Augmentin] Allergy (Verified 09/29/17 02:05) clavulanic acid [From Augmentin] Allergy (Verified 09/29/17 02:05) Home Medications: Medication Instructions Recorded Amphet Asp and D/Amphet [Adderall 10 mg PO DAILY PRN 06/28/16 10 MG (*)] Testosterone [Androderm 4 mg patch] 1 each TD DAILY 06/28/16 clonazePAM [klonoPIN (*)] 1 mg PO DAILY PRN 06/28/16 lamoTRIgine [LamICTAL 100 MG (*)] 200 mg PO HS 06/28/16 Gabapentin [Neurontin 300 MG (*)] 900 mg PO HS 03/14/17 Ondansetron Odt [Zofran Odt 4 mg 4 mg PO DAILY PRN #40 tab 03/17/17 (*)] Cephalexin [Keflex (RX)] 500 mg PO QID 6 Days cap 07/18/17 Hydrocodone/APAP 5/325 [[place] 1 - 2 tab PO Q6H PRN #10 tab 07/18/17 5/325 (*)] Seroquel 07/18/17 Medical Decision Making - Diagnostics EKG Interpretation: EKG: Complete interpretation has been separately recorded in the [facility] archive. Summary impression: Normal sinus rhythm Imaging Results: This is a 22-year-old female to male transgender patient who presents with chest pain and epigastric abdominal pain. On examination, with normal vital signs and looks very well. There is no tenderness in the epigastrium or chest wall. Differential diagnosis includes alcoholic gastritis, costochondritis, pericardial infusion, pneumonia, pneumothorax. I doubt pulmonary embolism given no tachycardia or hypoxia. I doubt alcoholic pancreatitis given mild nature of symptoms. In the emergency department, chest x-ray and EKG were performed. These were unremarkable. He felt well enough to go home and was discharged. I have instructed to use ibuprofen or Tylenol as needed. Departure - Departure Disposition: Home, Routine, Self-Care Clinical Impression: Vomiting Qualifiers: Vomiting type: unspecified Vomiting Intractability: non-intractable Nausea presence: with nausea Qualified Code(s): R11.2 - Nausea with vomiting, unspecified Chest pain Qualifiers: Chest pain type: unspecified Qualified Code(s): R07.9 - Chest pain, unspecified Condition: Good Instructions: Chest Pain (ED) Additional Instructions: Please make sure to drink plenty of fluids. You should return to the emergency department if your worse in any way. Referrals: Estee Gomez PA [Primary Care Provider] - As per Instructions
[2017-09-29 03:22] VITALS: BP 139/79
== END 2017-09-29 03:22 | disposition home or self-care (01) ==
LOC: EDSEX
DX: R11.2 Nausea with vomiting, unspecified (principal); R07.9 Chest pain, unspecified; J45.909 Unspecified asthma, uncomplicated; Z87.891 Personal history of nicotine dependence

== ENCOUNTER 2017-09-29 17:58 | Inpatient (IN) | payer OTHER ==
--- NOTE | 2017-09-29 18:15 | EDPHY ---
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 today for complaints of epigastric and chest pain, EKG and chest x-ray performed at that time. He returns to the ER complaining of continued symptoms, feels the epigastric pain radiating to his back associated nausea. No vomiting. No dyspnea. History of alcoholic pancreatitis. History of frequent alcohol use. REVIEW OF SYSTEMS: A ten point review of systems was performed and is negative with the exception of the items mentioned in the HPI PAST MEDICAL & SURGICAL HISTORY: Biologic female to male transgender patient. Alcoholic pancreatitis. SOCIAL HISTORY: Daily alcohol use and tobacco use . Prefers to be addressed as male "Cesar" PHYSICAL EXAM (Prior to examination, patient consented to physical exam, hands were washed and my usual and customary physical exam procedures followed) 1) GENERAL: Well-developed, well-nourished, alert and oriented. Appears to be in no acute distress. 2) HEAD: Normocephalic, atraumatic 3) HEENT: Pupils equal, round, reactive to light bilaterally. Sclera anicteric. Nasopharynx, oropharynx, clear, no lesions. Ears bilaterally with normal tympanic membranes. 4) NECK: Full range of motion, no meningeal signs. 5) LUNGS: Clear auscultation bilaterally, no wheezes, no rhonchi, no retractions. 6) HEART: Regular rate and rhythm, no murmur, no heave, no gallop. 7) ABDOMEN: No guarding, the tender to palpation epigastrium, no palpable or pulsatile mass negative McBurney's, negative Brown's, negative Rovsing's, negative peritoneal sign, 8) MUSCULOSKELETAL: Moving all extremities, no focal areas of tenderness, no obvious trauma. No peripheral edema or discoloration. 9) BACK: No CVA tenderness, no midline vertebral tenderness, no fluctuance, no step-off, no obvious trauma, no visual or palpable abnormality. 10) SKIN: No rash, no petechiae. 11) Psychiatric: Patient is oriented X 3, there is no agitation. DIFFERENTIAL DIAGNOSIS: In no particular order, including but not limited to biliary colic, cholecystitis, peptic ulcer disease, pancreatitis, and gastroenteritis. This is a partial list of diagnoses considered. These considerations are based on history, physical exam, past history and reassessment. - Personal History Tetanus Vaccine Date: 2010 - Medical/Surgical History Hx Asthma: Yes Hx Chronic Respiratory Disease: No Hx Diabetes: No Hx Cardiac Disease: No Hx Renal Disease: No Hx Cirrhosis: No Hx Alcoholism: Yes Hx HIV/AIDS: No Hx Splenectomy or Spleen Trauma: No Other PMH: [place]; IBS; schizoeffective, depression, anxiety, in transition from female to male with hormone therapy 06/28/16, pancreatitis, pericardial effusion , fatty liver, hx etoh issues - Social History Smoking Status: Current every day smoker Constitutional: Initial Vital Signs Temperature (C) 36.3 C 09/29/17 18:01 Heart Rate 89 09/29/17 18:01 Respiratory Rate 18 09/29/17 18:01 Blood Pressure 128/90 H 09/29/17 18:01 O2 Sat (%) 95 09/29/17 18:01 O2 Delivery Mode Room Air Allergies/Adverse Reactions: amoxicillin [From Augmentin] Allergy (Verified 09/29/17 20:51) Nausea/Vomiting Home Medications: Medication Instructions Recorded Amphet Asp and D/Amphet [Adderall 10 mg PO DAILY PRN 06/28/16 10 MG (*)] Testosterone [Androderm 4 mg patch] 1 each TD DAILY 06/28/16 clonazePAM [klonoPIN (*)] 1 mg PO DAILY PRN 06/28/16 lamoTRIgine [LamICTAL 100 MG (*)] 200 mg PO HS 06/28/16 Ondansetron Odt [Zofran Odt 4 mg 4 mg PO DAILY PRN #40 tab 03/17/17 (*)] Acetaminophen/ASA/Caffeine 1 each PO DAILY PRN 09/29/17 [Excedrin Tablet (*)] Herbals/Supplements -Info Only 1 ea PO DAILY 09/29/17 Hydrocodone/APAP 5/325 [[place] 1 tab PO Q6H PRN 09/29/17 5/325 (*)] Ibuprofen [Motrin (*)] 600 mg PO DAILY PRN 09/29/17 QUEtiapine FUMARATE [Seroquel 25 25 mg PO HS PRN 09/29/17 mg (*)] Medical Decision Making - Diagnostics Imaging Results: Imaging Impressions Chest X-Ray 09/29/17 18:19 Impression: No significant radiographic abnormality. Specifically, a source for chest pain is not identified. Chest/Thorax CTA 09/29/17 19:33 Impression: 1. No evidence of pulmonary embolic disease. 2. Peripancreatic edema is suspected, which is incompletely evaluated on this study and would be consistent with the clinical suspected pancreatitis. 3. Query hepatic steatosis. Results called and discussed with Burton Glynn PA-C on September 29, 2017 at 2017 hours. Images reviewed by myself ED Course/Re-evaluation: 6:15 p.m.: Old medical records reviewed. Will obtain laboratory and other diagnostic studies in the emergency department. 7:00 p.m.: Patient has a D-dimer of 3.75 with complaints of chest pain, epigastric pain. Recommended CT angiography to evaluate pulmonary embolus. Indications risks benefits including, but not limited to, radiation exposure, contrast induced nephropathy, financial cost, discussed with patient and he verbalizes consent. 817 pm: Patient has elevated lipase , consistent with acute pancreatitis, more than likely secondary to chronic alcohol use. Her CT angio is negative for PE. I recommended admission for pain control and evaluation of her pancreatitis. Consultation with Dr Alf Royal hospitalist who will admit - Data Points Laboratory Results: Laboratory Results 09/29/17 18:27 09/29/17 18:27 09/29/17 09/29/17 09/29/17 18:27 18:27 18:27 WBC RBC Hgb Hct MCV MCH MCHC RDW Plt Count MPV Neut % (Auto) Lymph % (Auto) [place] % (Auto) Eos % (Auto) Baso % (Auto) Nucleat RBC Rel Count Absolute Neuts (auto) Absolute Lymphs (auto) Absolute Monos (auto) Absolute Eos (auto) Absolute Basos (auto) Absolute Nucleated RBC Immature Gran % Immature Gran # D-Dimer 3.75 ug/mLFEU H ug/mLFEU (0.00-0.50) Sodium 140 mEq/L mEq/L (135-145) Potassium 4.0 mEq/L mEq/L (3.5-5.2) Chloride 96 mEq/L L mEq/L (97-110) Carbon Dioxide 25 mEq/l mEq/l (22-31) Anion Gap 19 mEq/L H mEq/L (8-16) BUN 6 mg/dL L mg/dL (7-23) Creatinine 0.6 mg/dL L mg/dL (0.7-1.3) Estimated GFR > 60 Glucose 105 mg/dL H mg/dL (70-100) Calcium 9.5 mg/dL mg/dL (8.5-10.4) Total Bilirubin 0.7 mg/dL mg/dL (0.1-1.4) Conjugated Bilirubin 0.3 mg/dL mg/dL (0.0-0.5) Unconjugated Bilirubin 0.4 mg/dL mg/dL (0.0-1.1) AST 65 IU/L H IU/L (17-59) ALT 46 IU/L IU/L (21-72) Alkaline Phosphatase 147 IU/L H IU/L (38-126) Troponin I < 0.012 ng/mL ng/mL (0.000-0.034) Total Protein 8.5 g/dL H g/dL (6.3-8.2) Albumin 5.0 g/dL g/dL (3.5-5.0) Lipase 3169 IU/L H IU/L (23-300) Beta HCG, Qual NEGATIVE 09/29/17 18:27 WBC 8.67 10^3/uL 10^3/uL (3.80-9.50) RBC 4.84 10^6/uL 10^6/uL (4.40-6.38) Hgb 14.9 g/dL g/dL (13.7-17.5) Hct 44.3 % % (40.0-51.0) MCV 91.5 fL fL (81.5-99.8) MCH 30.8 pg pg (27.9-34.1) MCHC 33.6 g/dL g/dL (32.4-36.7) RDW 13.3 % % (11.5-15.2) Plt Count 166 10^3/uL 10^3/uL (150-400) MPV 9.5 fL fL (8.7-11.7) Neut % (Auto) 82.8 % H % (39.3-74.2) Lymph % (Auto) 8.9 % L % (15.0-45.0) [place] % (Auto) 7.4 % % (4.5-13.0) Eos % (Auto) 0.1 % L % (0.6-7.6) Baso % (Auto) 0.5 % % (0.3-1.7) Nucleat RBC Rel Count 0.0 % % (0.0-0.2) Absolute Neuts (auto) 7.18 10^3/uL H 10^3/uL (1.70-6.50) Absolute Lymphs (auto) 0.77 10^3/uL L 10^3/uL (1.00-3.00) Absolute Monos (auto) 0.64 10^3/uL 10^3/uL (0.30-0.80) Absolute Eos (auto) 0.01 10^3/uL L 10^3/uL (0.03-0.40) Absolute Basos (auto) 0.04 10^3/uL 10^3/uL (0.02-0.10) Absolute Nucleated RBC 0.00 10^3/uL 10^3/uL (0-0.01) Immature Gran % 0.3 % % (0.0-1.1) Immature Gran # 0.03 10^3/uL 10^3/uL (0.00-0.10) D-Dimer Sodium Potassium Chloride Carbon Dioxide Anion Gap BUN Creatinine Estimated GFR Glucose Calcium Total Bilirubin Conjugated Bilirubin Unconjugated Bilirubin AST ALT Alkaline Phosphatase Troponin I Total Protein Albumin Lipase Beta HCG, Qual Medications Given: Hydromorphone/Sodium Chloride (Hydromorphone) 0.2 - 0.4 mg IVP Q4HRS PRN PRN Reason: Pain, Severe Unable to Take PO Stop: 10/09/17 20:41 Last Admin: 09/29/17 21:33 Dose: 0.4 mg Sodium Chloride (Ns) 1,000 mls @ 125 mls/hr IV CONT MAJO Stop: 03/28/18 20:44 Last Admin: 09/29/17 21:33 Dose: 1,000 mls Discontinued Medications Sodium Chloride (Ns) 1,800 mls @ 3,600 mls/hr 30 ml/kg infuse over 30 min ( 1800 ml) IV EDNOW ONE PRN Reason: Protocol Stop: 09/29/17 20:32 Last Admin: 09/29/17 20:09 Dose: Not Given Sodium Chloride (Ns) 1,000 mls @ 0 mls/hr IV ONCE ONE PRN Reason: Wide Open Stop: 09/29/17 20:06 Last Admin: 09/29/17 20:09 Dose: 1,000 mls Morphine Sulfate (Morphine) 4 mg IVP EDNOW ONE Stop: 09/29/17 20:00 Last Admin: 09/29/17 20:04 Dose: 4 mg Pantoprazole Sodium (Protonix) 40 mg IVP ONCE ONE Stop: 09/29/17 20:18 Last Admin: 09/29/17 20:30 Dose: 40 mg Departure - Departure Disposition: [facility] Acute Clinical Impression: Pancreatitis Qualifiers: Chronicity: acute Pancreatitis type: alcohol induced Acute pancreatitis complication: unspecified Qualified Code(s): K85.20 - Alcohol induced acute pancreatitis without necrosis or infection Condition: Fair
--- NOTE | 2017-09-29 18:19 | CPEKG ---
Heart Rate: 79 RR Interval: 759 P-R Interval: 144 QRSD Interval: 72 QT Interval: 400 QTC Interval: 459 P Codorus: 64 QRS Codorus: 77 T Wave Codorus: 54 EKG Severity - NORMAL ECG - EKG Impression: SINUS RHYTHM Electronically Signed By: Eron Leonard 29-Sep-2017 22:28:54
[2017-09-29 18:44] LABS: PLATELET COUNT 166 10^3/uL (150-400)
[2017-09-29] MEDS ORDERED: IOPAMIDOL (ISOVUE 370) 100 ML BTL IV ONE (19:36)
[2017-09-29] MEDS ORDERED: NS 1,800 ML IV ONE (20:03)
[2017-09-29] MEDS ORDERED: NS 1,000 ML IV ONE (20:05)
[2017-09-29] MEDS ORDERED: PANTOPRAZOLE SODIUM 40 MG VIAL IVP ONE (20:17)
[2017-09-29] MEDS ORDERED: HYDROmorphone HCL/NS 0.5 MG/ML SYR IVP PRN (20:42)
[2017-09-29] MEDS ORDERED: PROMETHAZINE HCL 25 MG/ML INJ IVP PRN (20:42)
[2017-09-29] MEDS ORDERED: ONDANSETRON DISINTEGRATING 4 MG TAB PO PRN (20:42)
[2017-09-29] MEDS ORDERED: ONDANSETRON 4 MG/2 ML VIAL IVP PRN (20:42)
[2017-09-29] MEDS: NS 1,000 ML IV SCH (21:33)
[2017-09-29] MEDS ORDERED: clonazePAM 1 MG TAB PO PRN (21:52)
[2017-09-29] MEDS ORDERED: QUEtiapine FUMARATE 25 MG TAB PO PRN (21:52)
[2017-09-30] MEDS: HYDROmorphone HCL/NS 0.5 MG/ML SYR IVP PRN ×3 (00:09→08:14)
[2017-09-30] MEDS: NS 1,000 ML IV SCH ×2 (08:05→15:47)
[2017-09-30] MEDS: ENOXAPARIN 40 MG/0.4 ML SYR SC SCH (08:20)
[2017-09-30] MEDS: TESTOSTERONE TD SCH (08:22)
--- NOTE | 2017-09-30 11:09 | HOSPPROG ---
Hospitalist Progress Note Assessment/Plan: Cesar is a 22-year-old male PMH acute alcohol-induced pancreatitis, transgender F ->M, presented to ED yesterday with epigastric and chest pain. CTA of chest neg for PE. Plan: #. Alcohol induced pancreatitis. Evidenced by abdominal pain, elevated lipase, and peripancreatic edema seen on chest CT Acute, clinically improving as patient is tolerating clearsbut unresolved as yet tolerating clear liquids, and will advance to low-fat tomorrow starting oral pain meds discussed need for alcohol cessation to prevent recurrence #. chest pain. Unclear etiology but negative ECG and enzymes Will order echo as patient reports pericardial effusion around 2009 #. Alcohol abuse. Reports having quit since last admission 03/18 but recently started to drink again Will have case management provide resources #. Prophylaxis. High risk patient, Lovenox 40 #. Disposition. Anticipated discharge 10/01/17, pending clinical response of above. Subjective: Reports omnipresent / midsternal sharp cp without radiation, worsening with position, or respirophasic components. Not short of breath. Also noting abdominal pain but no N and was able to tolerate liquids. Objective: Vital Signs Temp Pulse Resp BP Pulse Ox 98.0 F 79 14 141/80 H 96 09/30/17 08:00 09/30/17 08:00 09/30/17 08:00 09/30/17 08:00 09/30/17 08:00 09/29/17 09/30/17 10/01/17 05:59 05:59 05:59 Intake Total 1300 Balance 1300 - Physical Exam Constitutional: no apparent distress, appears nourished Eyes: anicteric sclera Ears, Nose, Mouth, Throat: moist mucous membranes Cardiovascular: regular rate and rhythym, no murmur, rub, or gallop Respiratory: no respiratory distress, no rales or rhonchi Gastrointestinal: soft, non-tender abdomen Skin: warm, normal color Neurologic: AAOx3 ICD10 Worksheet Patient Problems: Problems Problem Status Onset Pancreatitis Acute Dehydration Acute
[2017-09-30] MEDS: oxyCODONE IR 5 MG TAB PO PRN ×3 (11:13→20:44)
--- NOTE | 2017-09-30 11:33 | PDMN ---
Medical Necessity Medical necessity: C/M review: Patient meets INPT criteria under MCG M-250 Pancreatitis: Acute and persistent alcohol induced pancreatitis, abdominal pain , chest pain, D-Dimer 3.75, AST 65, Alk phos 147, Lipase 3169 requiring IV Dilaudid, planned echocardiogram, Case Management consult, ongoing IV NS 125 ml/ hr., transition to oral pain meds, clear liquid diet comorbid alcohol abuse, transgender female to male. PA anticipates > 2 MN LOS for ongoing med nec for eval of above.
[2017-09-30 11:48] VITALS: RESP 16
--- NOTE | 2017-09-30 11:51 | ASMTCMCOM ---
CM Note CM Note Notes: 22yr old Transgender admitted for ETOH induced pancreatitis, abdominal pain. He has a Hx of ETOH abuse, Schizoeffective, Depression, Anxiety. Patient also smokes. No discharge needs anticipated. Date Signed: 09/30/2017 11:51 AM Electronically Signed By:Reina Christiansen LCSW
[2017-09-30] MEDS: ACETAMINOPHEN 325 MG TAB PO PRN ×2 (12:31→20:43)
[2017-09-30] MEDS ORDERED: lamoTRIgine 100 MG TAB PO SCH (21:00)
[2017-10-01] MEDS: NS 1,000 ML IV SCH (00:15)
[2017-10-01] MEDS: oxyCODONE IR 5 MG TAB PO PRN (02:47)
[2017-10-01 07:30] VITALS: BP 131/65; PULSE 68; TEMP 98.9; O2SAT 97
--- NOTE | 2017-10-01 08:26 | HOSPPROG ---
Hospitalist Progress Note Assessment/Plan: Cesar is a 22-year-old male PMH acute alcohol-induced pancreatitis, transgender F ->M, presented to ED yesterday with epigastric and chest pain. CTA of chest neg for PE. #. Alcohol induced pancreatitis. Evidenced by abdominal pain, elevated lipase, and peripancreatic edema seen on chest CT low fat diet and tolerating well discussed need for alcohol cessation to prevent recurrence #. chest pain. Unclear etiology but negative ECG and enzymes Will order echo as patient reports pericardial effusion around 2009 could also be reflux/ trial of PPI reviewed 12 lead and shows sinus #. Alcohol abuse. Reports having quit since last admission 03/18 but recently started to drink again Will have case management provide resources #. Prophylaxis. High risk patient, Lovenox 40 #. Disposition. dc today after echo is evaluated and is noted to be stable Subjective: Cesar is feeling much better, eating and drinking well. Abdominal pain has subsided but having some chest tightness. Objective: Vital Signs Temp Pulse Resp BP Pulse Ox 37.2 C 68 16 131/65 H 97 10/01/17 07:28 10/01/17 07:28 10/01/17 07:28 10/01/17 07:28 10/01/17 07:28 09/30/17 10/01/17 10/02/17 05:59 05:59 05:59 Intake Total 3700 Balance 3700 - Physical Exam Constitutional: no apparent distress, appears nourished Eyes: anicteric sclera Ears, Nose, Mouth, Throat: hearing normal Cardiovascular: regular rate and rhythym Respiratory: no respiratory distress Gastrointestinal: tenderness (slight on right side of abdomen) Skin: warm Musculoskeletal: full muscle strength Neurologic: AAOx3 Psychiatric: interacting appropriately ICD10 Worksheet Patient Problems: Problems Problem Status Onset Pancreatitis Acute Dehydration Acute
[2017-10-01] MEDS: TESTOSTERONE TD SCH (09:00)
[2017-10-01] MEDS: ENOXAPARIN 40 MG/0.4 ML SYR SC SCH (09:00)
[2017-10-01] MEDS: ACETAMINOPHEN 325 MG TAB PO PRN (09:03)
[2017-10-01] MEDS ORDERED: PANTOPRAZOLE SODIUM 40 MG TAB PO SCH (09:15)
--- NOTE | 2017-10-01 09:30 | ECHO ---
[email or web address] [address] Main: [phone] Fax: Transthoracic Echocardiogram Name: LINA STAUFFER MR#: [id number] Study Date: 09/30/2017 Study Time: 12:35 PM Date of : 1995 Age: 22 year(s) Height: 165.1 cm (65 in.) Weight: 60.33 kg (133 lb.) BSA: 1.66 m2 Gender: Female Examination: Echo Indication: R/O Pericardial Effusion, Acute Pancreatitis Image Quality: Contrast: Requested by: Gwen Morrell BP: 130 mmHg/91 mmHg Heart Rate: Rhythm: Normal sinus rhythm with ectopy Indication: R/O Pericardial Effusion, Acute Pancreatitis Procedure Staff Television And Radio Repairer: Harish French RDCS Reading Physician: Manda Pérez MD Requesting Provider: Conclusions: Normal size left ventricle. No LV hypertrophy. Normal global systolic LV function. EF is 69 %. No regional wall motion abnormality. Normal diastolic LV function. Normal size right ventricle. Normal RV function. No pericardial effusion. No significant valvular disease No prior echo Measurements: Chambers Valvular Assessment AV/MV Valvular Assessment TV/PV Normal Normal Normal Name Value Range Name Value Range Name Value Range Ao Francie (MM): 2.7 cm (2.2 cm-3.7 AV Vmax: 1.03 m/s (1 m/s-1.7 cm) m/s) IVSd (2D): 0.7 cm (0.6 cm-1.1 AV maxP mmHg ( - ) cm) LVOT Vmax: 0.68 m/s (0.7 m/s-1.1 LVDd (2D): 4.1 cm (3.9 cm-5.3 m/s) cm) MV E Vmax: 0.80 m/s ( - ) LVDs (2D): 2.5 cm (2.1 cm-4 MV A Vmax: 0.59 m/s ( - ) cm) MV E/A: 1.36 ( - ) LVPWd (2D): 0.8 cm ( - ) LVEF (2D): 69 (>=54 %) Continued Measurements: Patient: LINA STAUFFER Study Date: 09/30/2017 Page 1 of 2 12:35 PM Findings: Left Ventricle: Normal size left ventricle. No LV hypertrophy. Normal global systolic LV function. EF is 69 %. No regional wall motion abnormality. Normal diastolic LV function. Right Ventricle: Normal size right ventricle. Normal RV function. Left Atrium: The left atrium is normal in size. Right Atrium: The right atrium is normal in size. Mitral Valve: The mitral valve is normal in appearance and function. Aortic Valve: The aortic valve is normal in appearance and function. Tricuspid Valve: The tricuspid valve is normal in appearance and function. Pulmonic Valve: The pulmonic valve is normal in appearance and function. Aorta: The aorta is normal. Pericardium: No pericardial effusion. (No Signature Object) Patient: LINA STAUFFER Study Date: 09/30/2017 Page 2 of 2 12:35 PM [id number]
--- NOTE | 2017-10-01 10:33 | ASMTCMCOM ---
CM Note CM Note Notes: Pt medically stable for d/c, no CM d/c needs identified. Pt reports to have many resources and declines any today. Date Signed: 10/01/2017 10:33 AM Electronically Signed By:CARLOS Adame
--- NOTE | 2017-10-01 21:25 | GDS ---
[f rep st] DISCHARGE SUMMARY DISCHARGE DIAGNOSES: 1. Alcohol-induced pancreatitis. 2. Chest pain. 3. Alcohol abuse. HISTORY OF PRESENT ILLNESS: Briefly, the patient is a 22-year-old male with a past medical history of alcohol-induced pancreatitis. The patient is currently transgendering from female to male. The patient presented the emergency room with chest pain. The patient had a CTA of the chest which was negative for PE. In addition, echocardiogram was performed, which showed nothing acute. A 12- lead EKG was performed, which showed sinus rhythm. HOSPITAL COURSE: 1. Acute induced pancreatitis. Patient is tolerating a low-fat diet. We have discussed the importance of alcohol cessation to prevent recurrence. 2. Chest pain, unclear etiology. ECG and enzymes were negative. Echo is stable. It could be secondary from reflux and gastritis. I have recommended the patient take a PPI daily. 3. Alcohol abuse. The patient has quit since last admission in March, recently started drinking again. The patient says that he has enough resources in the outpatient setting. DISCHARGE CONDITION: Stable. Blood pressure is 131/65, respiratory rate is 16 , pulse is 68, temperature is 37.2 Celsius, O2 sats on room air 97%. DISCHARGE MEDICATIONS: Please see the EMR. DISCHARGE INSTRUCTIONS: 1. Strongly encouraging abstaining from all alcohol use. 2. To try PPI daily, as well as a probiotic to see if this helps. 3. To follow up with primary care provider. /[id number]/MODL MTDD
--- NOTE | 2017-10-01 21:45 | GDS ---
[f rep st] DISCHARGE SUMMARY I DISCHARGE DIAGNOSES: 1. Alcohol-induced pancreatitis. 2. Chest pain. 3. Alcohol abuse. HISTORY OF PRESENT ILLNESS: Briefly, the patient is a 22-year-old female who is transitioning to being a male who presented to the emergency room with epigastric and chest pain. A CTA was performed which was negative for PE. In addition, an echocardiogram was performed which did not show any acute findings. HOSPITAL COURSE: 1. Alcohol-induced pancreatitis, much better. She is eating a low-fat diet and tolerating this well. Spoke with the patient about how important it is to stop all alcohol use. 2. Chest pain, unclear etiology. The EKG and cardiac enzymes were negative. Could be related to reflux. Recommending a trial of PPI every day. 3. Alcohol abuse. The patient had quit since her last admission in March but recently started drinking again. Asked if she wanted any resources, she said she felt she had plenty. DISCHARGE CONDITION: Stable. Blood pressure is 131/65, O2 sat on room air 97% , respiratory rate is 16, pulse is 68, temperature is 37.2 Celsius. MEDICATIONS AT DISCHARGE: Please see the EMR. DISCHARGE INSTRUCTIONS: 1. Stop drinking alcohol. 2. Try PPI daily to see if this helps with the chest pain. /[id number]/MODL MTDD
== END 2017-10-01 11:00 | disposition home or self-care (01) | DRG 440 ==
LOC: EDSEX 17:58 → F3N 20:52 → OBSVTOIN 09-30 11:18
PROVIDERS: ADMIT Internal Medicine; ATTEND Hospitalist
DX: K85.20 Alcohol induced acute pancreatitis without necrosis or infection (principal); F10.10 Alcohol abuse, uncomplicated; R07.89 Other chest pain; F64.0 Transsexualism; F25.9 Schizoaffective disorder, unspecified; F32.9 Major depressive disorder, single episode, unspecified
CPT/HCPCS: 96374; G0378; J1170; J1650; J2270; Q9967

== ENCOUNTER 2018-11-01 18:17 | Observation (INO) | payer OTHER ==
--- NOTE | 2018-11-01 18:48 | EDPHY ---
H & P Time Seen by Provider: 11/01/18 18:27 HPI/ROS: Chief complaint. Nausea vomiting, abdominal pain HPI. 23-year-old transgender female to male presents with 1 day history nausea vomiting and abdominal pain. No diarrhea. Pain is centered around the umbilicus. Described as achy. Radiation to back. Similar to previous pancreatitis. Patient was admitted September 30 for pancreatitis. Patient admits that this is likely due to alcohol. Has also been coughing. No fever. No chest pain or shortness of breath. 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 Vital signs significant heart rate 113 Eyes: Pupils equal and round no pallor or injection. ENT, Mouth: Mucous membranes are moist. Respiratory: There are no retractions, lungs are clear to auscultation. Cardiovascular: Regular rate and rhythm. Gastrointestinal: Abdomen is soft with tenderness in the periumbilical area as well as epigastrium. Normal bowel sounds. No masses Neurological: Awake and alert, sensory and motor exams grossly normal. Skin: Warm and dry, no rashes. Musculoskeletal: Neck is supple nontender. Extremities symmetrical, full range of motion. Psychiatric: Patient is oriented X 3, there is no agitation. Constitutional: Initial Vital Signs Temperature (C) 36.7 C 11/01/18 18:20 Heart Rate 113 H 11/01/18 18:20 Respiratory Rate 12 11/01/18 18:20 Blood Pressure 105/78 11/01/18 18:20 O2 Sat (%) 99 11/01/18 18:20 O2 Delivery Mode Room Air Allergies/Adverse Reactions: amoxicillin [From Augmentin] Allergy (Verified 09/29/17 20:51) Nausea/Vomiting Home Medications: Medication Instructions Recorded Amphet Asp and D/Amphet [Adderall 10 mg PO DAILY PRN 06/28/16 10 MG (*)] Testosterone [Androderm 4 mg patch] 1 each TD DAILY 06/28/16 clonazePAM [klonoPIN (*)] 1 mg PO DAILY PRN 06/28/16 lamoTRIgine [LamICTAL 100 MG (*)] 200 mg PO HS 06/28/16 Ondansetron Odt [Zofran Odt 4 mg 4 mg PO DAILY PRN #40 tab 03/17/17 (*)] Acetaminophen/ASA/Caffeine 1 each PO DAILY PRN 09/29/17 [Excedrin Tablet (*)] Herbals/Supplements -Info Only 1 ea PO DAILY 09/29/17 Hydrocodone/APAP 5/325 [[place] 1 tab PO Q6H PRN 09/29/17 5/325 (*)] Ibuprofen [Motrin (*)] 600 mg PO DAILY PRN 09/29/17 QUEtiapine FUMARATE [Seroquel 25 25 mg PO HS PRN 09/29/17 mg (*)] Medical Decision Making Procedures: Difficulty initially with IV access. Patient is given oral Zofran. ED Course/Re-evaluation: Patient is stable. Continues to have some discomfort. Patient and I discussed laboratory evaluation, treatment plan including recommendation for admission. She expresses understanding and agreement I consulted discussed case with hospitalist, who agrees to the admission Differential Diagnosis: Previous history of alcoholic pancreatitis. Patient endorses this is the likely cause again. Elevated lipase. - Data Points Laboratory Results: Laboratory Results 11/01/18 20:30 11/01/18 21:30 11/01/18 11/01/18 11/01/18 21:30 21:30 20:35 WBC RBC Hgb POC Hgb 15.3 gm/dL gm/dL (12.6-16.3) Hct POC Hct 45 % % (38-47) MCV MCH MCHC RDW Plt Count MPV Neut % (Auto) Lymph % (Auto) Lucas % (Auto) Eos % (Auto) Baso % (Auto) Nucleat RBC Rel Count Absolute Neuts (auto) Absolute Lymphs (auto) Absolute Monos (auto) Absolute Eos (auto) Absolute Basos (auto) Absolute Nucleated RBC Immature Gran % Immature Gran # POC Sodium 140 mEq/L mEq/L (135-145) Sodium 134 mEq/L L mEq/L (135-145) POC Potassium 3.4 mEq/L mEq/L (3.3-5.0) Potassium 4.4 mEq/L mEq/L (3.5-5.2) POC Chloride 95 mEq/L L mEq/L (97-110) Chloride 94 mEq/L L mEq/L (97-110) Carbon Dioxide 16 mEq/l L mEq/l (22-31) POC Total CO2 20 mEq/L L mEq/L (22-31) Anion Gap 24 mEq/L H mEq/L (6-14) POC BUN 35 mg/dL H mg/dL (7-23) BUN 40 mg/dL H mg/dL (7-23) Creatinine 1.6 mg/dL H mg/dL (0.6-1.0) POC Creatinine 1.7 mg/dL H mg/dL (0.6-1.0) Estimated GFR 39 Glucose 99 mg/dL mg/dL (70-100) POC Glucose 110 mg/dL H mg/dL (70-100) Calcium 7.2 mg/dL L mg/dL (8.5-10.4) Total Bilirubin 1.4 mg/dL mg/dL (0.1-1.4) Conjugated Bilirubin 0.6 mg/dL H mg/dL (0.0-0.5) Unconjugated Bilirubin 0.8 mg/dL mg/dL (0.0-1.1) AST 86 IU/L H IU/L (14-46) ALT 46 IU/L IU/L (9-52) Alkaline Phosphatase 126 IU/L IU/L (38-126) Total Protein 7.1 g/dL g/dL (6.3-8.2) Albumin 5.0 g/dL g/dL (3.5-5.0) Lipase Beta HCG, Qual NEGATIVE Ethyl Alcohol < 10 mg/dL mg/dL (0-10) 11/01/18 11/01/18 20:30 20:30 WBC 13.82 10^3/uL H 10^3/uL (3.80-9.50) RBC 4.82 10^6/uL 10^6/uL (4.18-5.33) Hgb 14.9 g/dL g/dL (12.6-16.3) POC Hgb Hct 42.6 % % (38.0-47.0) POC Hct MCV 88.4 fL fL (81.5-99.8) MCH 30.9 pg pg (27.9-34.1) MCHC 35.0 g/dL g/dL (32.4-36.7) RDW 12.0 % % (11.5-15.2) Plt Count 282 10^3/uL 10^3/uL (150-400) MPV 10.0 fL fL (8.7-11.7) Neut % (Auto) 88.2 % H % (39.3-74.2) Lymph % (Auto) 4.8 % L % (15.0-45.0) Lucas % (Auto) 6.4 % % (4.5-13.0) Eos % (Auto) 0.1 % L % (0.6-7.6) Baso % (Auto) 0.2 % L % (0.3-1.7) Nucleat RBC Rel Count 0.0 % % (0.0-0.2) Absolute Neuts (auto) 12.18 10^3/uL H 10^3/uL (1.70-6.50) Absolute Lymphs (auto) 0.67 10^3/uL L 10^3/uL (1.00-3.00) Absolute Monos (auto) 0.89 10^3/uL H 10^3/uL (0.30-0.80) Absolute Eos (auto) 0.01 10^3/uL L 10^3/uL (0.03-0.40) Absolute Basos (auto) 0.03 10^3/uL 10^3/uL (0.02-0.10) Absolute Nucleated RBC 0.00 10^3/uL 10^3/uL (0-0.01) Immature Gran % 0.3 % % (0.0-1.1) Immature Gran # 0.04 10^3/uL 10^3/uL (0.00-0.10) POC Sodium Sodium TNP POC Potassium Potassium TNP POC Chloride Chloride TNP Carbon Dioxide TNP POC Total CO2 Anion Gap TNP POC BUN BUN TNP Creatinine TNP POC Creatinine Estimated GFR TNP Glucose TNP POC Glucose Calcium TNP Total Bilirubin TNP Conjugated Bilirubin TNP Unconjugated Bilirubin TNP AST TNP ALT TNP Alkaline Phosphatase TNP Total Protein TNP Albumin TNP Lipase 570 IU/L H IU/L (23-300) Beta HCG, Qual Ethyl Alcohol TNP Medications Given: Discontinued Medications Fentanyl (Sublimaze) 50 mcg IVP EDNOW ONE Stop: 11/01/18 21:02 Last Admin: 11/01/18 21:04 Dose: 50 mcg Sodium Chloride (Ns) 1,000 mls @ 0 mls/hr IV EDNOW ONE; Wide Open PRN Reason: Protocol Stop: 11/01/18 18:55 Last Admin: 11/01/18 19:15 Dose: 1,000 mls Sodium Chloride (Ns) 1,000 mls @ 0 mls/hr IV EDNOW ONE; Wide Open PRN Reason: Protocol Stop: 11/01/18 18:55 Last Admin: 11/01/18 19:20 Dose: 1,000 mls Sodium Chloride (Ns) 1,000 mls @ 0 mls/hr IV EDNOW ONE; Wide Open PRN Reason: Protocol Stop: 11/01/18 21:34 Last Admin: 11/01/18 21:36 Dose: 1,000 mls Ondansetron HCl (Zofran) 4 mg IVP EDNOW ONE Stop: 11/01/18 18:55 Last Admin: 11/01/18 19:28 Dose: 4 mg Ondansetron HCl (Zofran Odt) 4 mg PO EDNOW ONE Stop: 11/01/18 18:55 Last Admin: 11/01/18 18:56 Dose: 4 mg Point of Care Test Results: Chemistry 11/01/18 20:35 POC Sodium 140 mEq/L mEq/L (135-145) POC Potassium 3.4 mEq/L mEq/L (3.3-5.0) POC Chloride 95 mEq/L L mEq/L (97-110) POC Total CO2 20 mEq/L L mEq/L (22-31) POC BUN 35 mg/dL H mg/dL (7-23) POC Creatinine 1.7 mg/dL H mg/dL (0.6-1.0) POC Glucose 110 mg/dL H mg/dL (70-100) ISTAT H&H 11/01/18 20:35 POC Hgb 15.3 gm/dL gm/dL (12.6-16.3) POC Hct 45 % % (38-47) Departure - Departure Disposition: [facility] Acute Clinical Impression: Pancreatitis Qualifiers: Chronicity: acute Pancreatitis type: alcohol induced Acute pancreatitis complication: unspecified Qualified Code(s): K85.20 - Alcohol induced acute pancreatitis without necrosis or infection Condition: Fair Referrals: NONE *PRIMARY CARE P,. [Primary Care Provider] - As per Instructions
[2018-11-01] MEDS ORDERED: ONDANSETRON 4 MG/2 ML VIAL IVP ONE (18:54)
[2018-11-01] MEDS ORDERED: NS 1,000 ML IV ONE ×3 (18:54→21:33)
[2018-11-01] MEDS ORDERED: ONDANSETRON DISINTEGRATING 4 MG TAB PO ONE (18:54)
[2018-11-01 20:45] LABS: PLATELET COUNT 282 10^3/uL (150-400)
[2018-11-01] MEDS ORDERED: fentaNYL 100 MCG/2 ML INJ IVP ONE (21:01)
[2018-11-01] MEDS ORDERED: PROMETHAZINE HCL 25 MG/ML INJ IVP PRN (22:35)
[2018-11-01] MEDS ORDERED: ONDANSETRON DISINTEGRATING 4 MG TAB PO PRN (22:35)
[2018-11-01] MEDS ORDERED: ACETAMINOPHEN 325 MG TAB PO PRN (22:35)
[2018-11-01] MEDS ORDERED: oxyCODONE IR 5 MG TAB PO PRN (22:35)
[2018-11-01] MEDS ORDERED: ONDANSETRON 4 MG/2 ML VIAL IVP PRN (22:35)
[2018-11-01] MEDS ORDERED: NS 1,000 ML IV SCH (22:45)
--- NOTE | 2018-11-01 23:26 | PDGENHP ---
History and Physical - Chief Complaint Abdominal pain, vomiting - History of Present Illness 23 yo F->M w/ hx of depression and ETOH use d/o presents with abdominal pain and vomiting. The patient has been having symptoms for about 24 hours. He developed epi-gastric abdominal pain followed by nausea and vomiting. He has been unable to take any PO over this period. He has had previous bouts of pancreatitis that have felt like this, but more severe. He drinks 6+ drinks almost nightly. He denies any history of significant alcohol withdrawal and denies any current symptomatology of this. In the ED his work-up is consistent with mild pancreatitis and INOCENCIO. He is being admitted for management of these issues. Case discussed with Dr. Viveros; records reviewed and summarized above. History Information - Allergies/Home Medication List Allergies/Adverse Reactions: amoxicillin [From Augmentin] Allergy (Verified 09/29/17 20:51) Nausea/Vomiting Home Medications: Amphet Asp and D/Amphet [Adderall 10 MG (*)] 10 mg PO DAILY PRN 06/28/16 [Last Taken 09/22/17] Testosterone [Androderm 4 mg patch] 1 each TD DAILY 06/28/16 [Last Taken ] clonazePAM [klonoPIN (*)] 1 mg PO DAILY PRN 06/28/16 [Last Taken 09/28/17] lamoTRIgine [LamICTAL 100 MG (*)] 200 mg PO HS 06/28/16 [Last Taken 09/28/17] Acetaminophen/ASA/Caffeine [Excedrin Tablet (*)] 1 each PO DAILY PRN 09/29/17 [ Last Taken Unknown] Herbals/Supplements -Info Only 1 ea PO DAILY 09/29/17 [Last Taken Unknown] Hydrocodone/APAP 5/325 [[place] 5/325 (*)] 1 tab PO Q6H PRN 09/29/17 [Last Taken 09/29/17] Ibuprofen [Motrin (*)] 600 mg PO DAILY PRN 09/29/17 [Last Taken Unknown] QUEtiapine FUMARATE [Seroquel 25 mg (*)] 25 mg PO HS PRN 09/29/17 [Last Taken ] I have personally reviewed and updated: family history, medical history - Past Medical History Additional medical history: ETOH use d/o. Depression - Surgical History Additional surgical history: Septoplasty - Family History Additional family history: Adopted, thinks mother had ETOH issues - Social History Smoking Status: Light smoker Review of Systems Review of Systems: ROS: 10pt was reviewed & negative except for what was stated in HPI & below Physical Exam Physical Exam: Temp Pulse Resp BP Pulse Ox 36.7 C 88 17 115/74 99 11/01/18 23:12 11/01/18 23:13 11/01/18 23:13 11/01/18 23:12 11/01/18 23:13 Constitutional: appears nourished, uncomfortable Eyes: PERRL, EOMI Ears, Nose, Mouth, Throat: moist mucous membranes, no oral mucosal ulcers Cardiovascular: regular rate and rhythym, no murmur, rub, or gallop Respiratory: no respiratory distress, clear to auscultation Gastrointestinal: normoactive bowel sounds, tenderness (Diffuse), No guarding, No rebound, No distension Skin: warm, normal color Musculoskeletal: full muscle strength, no muscle tenderness Neurologic: AAOx3, CN II-XII Intact Psychiatric: interacting appropriately, not anxious Lab Data & Imaging Review 11/01/18 20:30 11/01/18 21:30 WBC 13.82 10^3/uL (3.80-9.50) H 11/01/18 20:30 RBC 4.82 10^6/uL (4.18-5.33) 11/01/18 20:30 Hgb 14.9 g/dL (12.6-16.3) 11/01/18 20:30 POC Hgb 15.3 gm/dL (12.6-16.3) 11/01/18 20:35 Hct 42.6 % (38.0-47.0) 11/01/18 20:30 POC Hct 45 % (38-47) 11/01/18 20:35 MCV 88.4 fL (81.5-99.8) 11/01/18 20:30 MCH 30.9 pg (27.9-34.1) 11/01/18 20:30 MCHC 35.0 g/dL (32.4-36.7) 11/01/18 20:30 RDW 12.0 % (11.5-15.2) 11/01/18 20:30 Plt Count 282 10^3/uL (150-400) 11/01/18 20:30 MPV 10.0 fL (8.7-11.7) 11/01/18 20:30 Neut % (Auto) 88.2 % (39.3-74.2) H 11/01/18 20:30 Lymph % (Auto) 4.8 % (15.0-45.0) L 11/01/18 20:30 [place] % (Auto) 6.4 % (4.5-13.0) 11/01/18 20:30 Eos % (Auto) 0.1 % (0.6-7.6) L 11/01/18 20:30 Baso % (Auto) 0.2 % (0.3-1.7) L 11/01/18 20:30 Nucleat RBC Rel Count 0.0 % (0.0-0.2) 11/01/18 20:30 Absolute Neuts (auto) 12.18 10^3/uL (1.70-6.50) H 11/01/18 20:30 Absolute Lymphs (auto) 0.67 10^3/uL (1.00-3.00) L 11/01/18 20:30 Absolute Monos (auto) 0.89 10^3/uL (0.30-0.80) H 11/01/18 20:30 Absolute Eos (auto) 0.01 10^3/uL (0.03-0.40) L 11/01/18 20:30 Absolute Basos (auto) 0.03 10^3/uL (0.02-0.10) 11/01/18 20:30 Absolute Nucleated RBC 0.00 10^3/uL (0-0.01) 11/01/18 20:30 Immature Gran % 0.3 % (0.0-1.1) 11/01/18 20:30 Immature Gran # 0.04 10^3/uL (0.00-0.10) 11/01/18 20:30 POC Sodium 140 mEq/L (135-145) 11/01/18 20:35 Sodium 134 mEq/L (135-145) L 11/01/18 21:30 POC Potassium 3.4 mEq/L (3.3-5.0) 11/01/18 20:35 Potassium 4.4 mEq/L (3.5-5.2) 11/01/18 21:30 POC Chloride 95 mEq/L (97-110) L 11/01/18 20:35 Chloride 94 mEq/L (97-110) L 11/01/18 21:30 Carbon Dioxide 16 mEq/l (22-31) L 11/01/18 21:30 POC Total CO2 20 mEq/L (22-31) L 11/01/18 20:35 Anion Gap 24 mEq/L (6-14) H 11/01/18 21:30 POC BUN 35 mg/dL (7-23) H 11/01/18 20:35 BUN 40 mg/dL (7-23) H 11/01/18 21:30 Creatinine 1.6 mg/dL (0.6-1.0) H 11/01/18 21:30 POC Creatinine 1.7 mg/dL (0.6-1.0) H 11/01/18 20:35 Estimated GFR 39 11/01/18 21:30 Glucose 99 mg/dL (70-100) 11/01/18 21:30 POC Glucose 110 mg/dL (70-100) H 11/01/18 20:35 Calcium 7.2 mg/dL (8.5-10.4) L 11/01/18 21:30 Total Bilirubin 1.4 mg/dL (0.1-1.4) 11/01/18 21:30 Conjugated Bilirubin 0.6 mg/dL (0.0-0.5) H 11/01/18 21:30 Unconjugated Bilirubin 0.8 mg/dL (0.0-1.1) 11/01/18 21:30 AST 86 IU/L (14-46) H 11/01/18 21:30 ALT 46 IU/L (9-52) 11/01/18 21:30 Alkaline Phosphatase 126 IU/L (38-126) 11/01/18 21:30 Total Protein 7.1 g/dL (6.3-8.2) 11/01/18 21:30 Albumin 5.0 g/dL (3.5-5.0) 11/01/18 21:30 Lipase 570 IU/L (23-300) H 11/01/18 20:30 Beta HCG, Qual NEGATIVE 11/01/18 21:30 Ethyl Alcohol < 10 mg/dL (0-10) 11/01/18 21:30 Assessment & Plan Assessment: 23 yo F->M w/ depression and ETOH use d/o presents with acute pancreatitis. Plan: 1. Acute alcoholic pancreatitis - 24 hours of abdominal pain, nausea, and vomiting. Lipase mildly elevated at 570. He drinks 6+ drinks almost nightly and has had prior bouts of alcoholic pancreatitis. - Admit for observation - NPO, ADAT - mIVF, pain control, anti-emetics PRN - Abdominal imaging if condition worsens 2. ETOH use d/o - Drinks 6+ drinks almost nightly, she denies any history of severe withdrawal or current symptoms. - Monitor for withdrawal, initiate CIWA if developing - [employer] cessation 3. Depression - Continue home medications pending reconciliation Diet - NPO, mIVF, ADAT Code - Full Ppx - Low risk Dispo - Admit under observation status
[2018-11-02] MEDS ORDERED: NICOTINE 7 MG/24 HR PATCH TD ONE ×2 (06:23→09:45)
--- NOTE | 2018-11-02 12:56 | HOSPPROG ---
Hospitalist Progress Note Assessment/Plan: 23 yo F->M w/ depression and ETOH use d/o presents with acute pancreatitis. Patient goes by the name 'Cesar'. First encounter, chart reviewed. *acute alcoholic pancreatitis -lipase mildly elevated -pain has resolved -eating and drinking well *ETOH use -drinks upto 6 drinks a night -says he drinks to deal w his depression -open to resources- to provide this info *Depression -home meds resumed -has a psychiatrist he see *plan: dc today Subjective: Cesar is feeling better physically. Objective: Vital Signs Temp Pulse Resp BP Pulse Ox 37.1 C 96 14 105/59 L 97 11/02/18 11:19 11/02/18 11:19 11/02/18 11:19 11/02/18 11:19 11/02/18 11:19 11/01/18 11/02/18 11/03/18 05:59 05:59 05:59 Intake Total 3040 Balance 3040 - Physical Exam Constitutional: no apparent distress, appears nourished Eyes: PERRL Ears, Nose, Mouth, Throat: hearing normal Cardiovascular: regular rate and rhythym Respiratory: no respiratory distress Gastrointestinal: normoactive bowel sounds, soft, non-tender abdomen Skin: warm Musculoskeletal: full muscle strength Neurologic: AAOx3 Psychiatric: interacting appropriately, other (quiet) ICD10 Worksheet Patient Problems: Problems Problem Status Onset Pancreatitis Acute Dehydration Acute
[2018-11-02] MEDS ORDERED: buPROPion XL 150 MG TAB PO SCH (13:00)
[2018-11-02 14:41] LABS: PLATELET COUNT 155 10^3/uL (150-400)
[2018-11-02 15:27] VITALS: BP 107/69
[2018-11-02] MEDS ORDERED: POTASSIUM CL 20 MEQ TAB PO ONE (15:29)
--- NOTE | 2018-11-02 15:53 | GDS ---
[f rep st] DISCHARGE SUMMARY DISCHARGE DIAGNOSES: 1. Acute alcohol pancreatitis. 2. Alcohol abuse. 3. Depression. 4. Renal insufficiency. 5. Hypokalemia. 6. Hyponatremia. HISTORY OF PRESENT ILLNESS: Briefly, the patient is a very nice 23-year-old, who is in the process of transitioning from female to male who has a history of depression and alcohol use. He presented to the emergency room with abdominal pain and noted to have an elevated lipase. He was treated with supportive care. Today, he has been eating and drinking well. He will be discharged home. Case Management also spoke with the patient to give him resources to help with his alcohol use. HOSPITAL COURSE: 1. Acute alcoholic pancreatitis. The patient is eating and drinking well today , has no further pain. 2. Alcohol use. Drinks up to 6 drinks a night. The patient does this to deal with his depression. He has a psychiatrist he will follow up with. Case Management gave him resources. 3. Depression. Home medications were resumed. Offered to call psychiatrist but the patient said he would prefer to follow up with him himself. 4. Renal insufficiency due to dehydration, improved with hydration. 5. Hyponatremia, likely due to poor solute intake. Encouraged to get his labs checked this next week. 6. Hypokalemia. Received a dose of potassium prior to discharge. DISCHARGE CONDITION: Stable. Blood pressure is 107/69, heart rate of 85, respiratory rate is 16, O2 saturation on room air 99%, temperature 36.6 Celsius. MEDICATIONS AT DISCHARGE: Please see the EMR. DISCHARGE INSTRUCTIONS: 1. Stop drinking. Get outside and walk. The alcohol is taking a great toll on his health. 2. Follow up with psychiatrist. 3. To get his white blood cell count, including a CBC and chemistry panel done in a week. Copy requested to: /[id number]/MODL [email or web address]
--- NOTE | 2018-11-02 15:59 | ASMTDCNOTE ---
Case Management Discharge Discharge Order Complete? Answers: Yes Patient to Obtain Answers: Independently Medications Transportation Arranged Answers: Family/Friends Discharge Comments Notes: Pt was admitted with acute pancreatitis, n/v. He is a transgender female who goes by "Cesar." He has a hx of schizoaffective d/o, depression/anxiety, and etoh abuse (6+ drinks daily). He has had prior episodes of pancreatitis. CM provided etoh treatment resources and discussed AA meetings and [facility] per pt's request for assistance. He has good support from his parents. He is on his father's health insurance and will research to see if there is any etoh treatment coverage. Pt expressed interest in quitting etoh. Pt is discharging home today. Date Signed: 11/02/2018 03:58 PM Electronically Signed By:CARLOS Plata
--- NOTE | 2018-11-02 16:02 | ASDISCHSUM ---
Discharge Information Plan Status:Home with No Needs Medically Cleared to Leave:11/02/2018 Discharge Date:11/02/2018 CM D/C Disposition:Home, Routine, Self-Care ADT D/C Disposition:Home, Routine, Self-Care Projected Discharge Date:11/02/2018 Transportation at D/C:Friend Discharge Delay Reason: Follow-Up Date:11/02/2018 Discharge Slot: Final Diagnosis: Placement Information Patient Contact Information Contact Name:DAVID Relationship: Address:[address] [address] Work Phone: City:[place] Alternate Phone: State/Zip Code:[place] Email: Financial Information Financial Class:HMO and PPO Plans Primary Plan Desc:[employer] PPO POS HMO SIG ADM Primary Plan Number:[id number] Secondary Plan Desc: Secondary Plan Number: Assessment Information LACE LACE Length of stay for Answers: Less than 1 day current admission Acuity / Level of Answers: No Care: Did the patient have an inpatient admission? # of Emergency department Answers: 1-2 visits in the last 6 months Social determinants Answers: History of substance abuse (ETOH, street drugs, prescription drugs, etc.) Mental health diagnosis (anxiety, depression, pers onality disorders, etc.) Score: 7 Date Signed: 11/02/2018 04:00 PM Electronically Signed By:CARLOS Plata Case Management Discharge Plan Note Case Management Discharge Discharge Order Complete? Answers: Yes Patient to Obtain Answers: Independently Medications Transportation Arranged Answers: Family/Friends Discharge Comments Notes: Pt was admitted with acute pancreatitis, n/v. He is a transgender female who goes by "[employer]." He has a hx of schizoaffective d/o, depression/anxiety, and etoh abuse (6+ drinks daily). He has had prior episodes of pancreatitis. CM provided etoh treatment resources and discussed AA meetings and [employer] per pt's request for assistance. He has good support from his parents. He is on his father's health insurance and will research to see if there is any etoh treatment coverage. Pt expressed interest in quitting etoh. Pt is discharging home today. Date Signed: 11/02/2018 03:58 PM Electronically Signed By:CARLOS Plata Intervention Information
[2018-11-02] MEDS ORDERED: lamoTRIgine 100 MG TAB PO SCH (21:00)
== END 2018-11-02 16:24 | disposition home or self-care (01) ==
LOC: INTOOBSV 22:34 → F3E 23:23
PROVIDERS: ADMIT Student in an Organized Health Care Education/Training Program; ATTEND Internal Medicine
DX: K85.20 Alcohol induced acute pancreatitis without necrosis or infection (principal); F10.188 Alcohol abuse with other alcohol-induced disorder; F32.9 Major depressive disorder, single episode, unspecified; N18.9 Chronic kidney disease, unspecified; F17.210 Nicotine dependence, cigarettes, uncomplicated; E87.6 Hypokalemia; E87.1 Hypo-osmolality and hyponatremia; F64.9 Gender identity disorder, unspecified; Y90.9 Presence of alcohol in blood, level not specified
CPT/HCPCS: 96361; 96374; 99285; G0378; 82435-PO; 82565-PO; 82947-PO; 84132-PO; 84295-PO; 84520-PO; 85014-ER; G0480; J2405; J3010